=== PATIENT | female | born 1970 | race Caucasian/White ===

== ENCOUNTER → 2018-01-10 | Outpatient (CLI) | payer SELFPAY | LOC: M LAB 09:18 | DX: N92.0 Excessive and frequent menstruation with regular cycle (principal) ==

== ENCOUNTER 2018-05-02 08:16 | Day surgery (SDC) | payer OTHER ==
[~2018-05-02 08:16] MED LIST: LIDOCAINE 2% INJ 100 MG/5 ML SDV (FOR ANES.) As Ordered; PROPOFOL 200 MG/20 ML VIAL As Ordered
[2018-05-02] MEDS ORDERED: NS 1,000 ML IV (10:00)
== END 2018-05-02 12:00 | disposition home or self-care (01) ==
LOC: M OPP 08:16
DX: Z12.11 Encounter for screening for malignant neoplasm of colon (principal); Z83.71 Family history of colonic polyps; D12.3 Benign neoplasm of transverse colon; D12.5 Benign neoplasm of sigmoid colon; K64.8 Other hemorrhoids; K64.4 Residual hemorrhoidal skin tags; I10 Essential (primary) hypertension; E78.5 Hyperlipidemia, unspecified; R00.8 Other abnormalities of heart beat; E11.9 Type 2 diabetes mellitus without complications; K21.9 Gastro-esophageal reflux disease without esophagitis; R12 Heartburn; R51 Headache; R06.83 Snoring; Z88.2 Allergy status to sulfonamides; Z79.899 Other long term (current) drug therapy; Z79.84 Long term (current) use of oral hypoglycemic drugs
CPT/HCPCS: 45385

== ENCOUNTER → 2018-10-01 | Outpatient (REF) | payer SELFPAY ==
[~2018-10-01] MED LIST changes: +ATEN25TA PO; +ATEN50TA2 PO; +CINN500T PO; +COCOOIL6 PO; +FERRPOW27 PO; +FISH7.5C PO; -LIDOCAINE 2% INJ 100 MG/5 ML SDV (FOR ANES.) As Ordered; +METF500T4 PO; +PROG100C PO; -PROPOFOL 200 MG/20 ML VIAL As Ordered; +STOO100C PO; +VITA500046 PO; +VITA500T PO
[2018-10-01 17:15] LABS: INFLUENZA A AMPLIFICATION NEGATIVE (NEGATIVE); INFLUENZA B AMPLIFICATION NEGATIVE (NEGATIVE)
== END ==
LOC: M LAB REF 10:58
PROVIDERS: ATTEND Physician Assistant
DX: J11.1 Influenza due to unidentified influenza virus with other respiratory manifestations (principal)

== ENCOUNTER → 2019-06-01 | Outpatient (CLI) | payer SELFPAY ==
[~2019-06-01] MED LIST changes: +METF-791 PO; -METF500T4 PO; +MM S100C PO; -PROG100C PO; +PROG1CAP8 PO; -STOO100C PO
--- NOTE | 2019-06-04 05:33 | REP ---
THYROID ULTRASOUND: Real-time sonographic evaluation of thyroid performed. Right lobe is markedly enlarged, 10.8 x 4.8 x 3.4 cm. Left lobe is mildly enlarged, 5.4 x 1.3 x 0.9 cm. There is an exophytic nodular area of the right upper pole. The more lateral is solid containing microcalcifications; the solid area measures 3.4 x 1.7 x 2.6 cm. There is a complex cystic area along the medial aspect measuring 1.9 x 1.2 x 1.7 cm. These two nodular areas are lateral to the carotid artery and jugular vein. In the adjacent more inferior upper pole of the right lobe, there is a mildly complex cyst with wall thickening measuring 1.4 x 1.4 x 1.6 cm. In the right mid lobe, there is a solid nodule with multiple microcalcifications measuring 2.1 x 1.8 x 2.1 cm, the microcalcifications peripherally located. In the right lower pole, there is a complex cystic and solid nodule, which appears to contain multiple microcalcifications 4.0 x 3.6 x 3.5 cm. On the left, there are two adjacent solid nodules containing multiple microcalcifications, the larger 1.3 x 1.2 x 1.4 cm and just superior to that 8 x 7 x 10 mm. There is a 5 mm nodule in the left isthmus. IMPRESSION: Marked enlargement of the right lobe of the thyroid with slight enlargement of the left lobe. Suspicious thyroid nodules are seen bilaterally. An exophytic solid nodule containing microcalcifications is seen in the upper pole on the right with an approximate maximum diameter of 3.4 cm. A solid nodule containing peripheral microcalcifications in the mid right lobe measures 2.1 cm maximally. A suspicious complex solid and cystic nodule in the right lower pole has a maximum diameter of 4 cm. Two adjacent suspicious nodules in the left lower pole, the larger measuring 1.4 cm maximally. Ultrasound-guided biopsy is recommended. Electronically Signed by Jonathan Campbell MD 06/04/2019 04:07 P
== END ==
LOC: M RAD 14:43
PROVIDERS: ATTEND Physician Assistant
DX: R00.2 Palpitations (principal); E04.2 Nontoxic multinodular goiter

== ENCOUNTER → 2019-09-03 | Outpatient (REF) | payer SELFPAY | LOC: M LAB REF 10:35 | PROVIDERS: ATTEND Internal Medicine Endocrinology, Diabetes & Metabolism | DX: E04.2 Nontoxic multinodular goiter (principal) ==

== ENCOUNTER → 2019-10-05 | Outpatient (CLI) | payer BC, OTHER ==
[2019-10-05 09:37] LABS: BLOOD UREA NITROGEN 14 MG/DL (7-18); CALCIUM LEVEL 8.9 MG/DL (8.5-10.1); CARBON DIOXIDE LEVEL 24 MEQ/L (21-32); CHLORIDE LEVEL 108 MEQ/L (98-107); CREATININE FOR GFR 0.57 MG/DL (0.55-1.30); GLOMERULAR FILTRATION RATE > 60.0 (>51); GLUCOSE, FASTING 147 MG/DL (70-100); POTASSIUM SERUM 4.1 MEQ/L (3.5-5.1); SODIUM LEVEL 141 MEQ/L (136-145)
== END ==
LOC: M LAB 08:11
PROVIDERS: ATTEND Surgery
DX: Z01.818 Encounter for other preprocedural examination (principal)

== ENCOUNTER → 2020-08-07 | Outpatient (CLI) | payer BC, OTHER ==
[~2020-08-07] MED LIST changes: -METF-791 PO; +METF-838 PO; +VITA-243 PO; -VITA500T PO
--- NOTE | 2020-08-09 07:10 | REP ---
INDICATION: LOCALIZED ENLARGED LYMPH NODES COMPARISON: 06/01/2019 TECHNIQUE: Campbell scale and color evaluation of the thyroid gland using the linear high frequency transducer. FINDINGS: Evidence for prior thyroidectomy. Ultrasound examination demonstrates no residual or regenerative thyroid tissue. Bilateral normal appearing lymph nodes are identified measuring 17 x 9 x 17 mm on the right and 13 x 9 x 7, 13 x 5 x 5, 16 x 5 x 8 mm on the left. IMPRESSION: Evidence for prior thyroidectomy. Normal appearing bilateral lymph nodes (left greater than right). <Electronically signed by Blas Silva > 08/09/20 0707
== END ==
LOC: M RAD 15:53
PROVIDERS: ATTEND Nurse Practitioner Adult Health
DX: K59.00 Constipation, unspecified (principal); R59.0 Localized enlarged lymph nodes

== ENCOUNTER → 2020-12-22 | Outpatient (CLI) | payer BC ==
--- NOTE | 2020-12-22 13:50 | REPMRS ---
Patient History The patient states she has not had a clinical breast exam in over a year. Patient has history of other cancer at age 49. Family history of colorectal cancer at age 65 in paternal grandmother. Took hormonal contraceptives for 10 years. 3D TOMOSYNTHESIS WAS PERFORMED. [facility]%. Volpara breast density b. Digital Woman Screen Mammo: December 22, 2020 - Exam #: [id number] Bilateral CC and MLO view(s) were taken. Technologist: RT Jaison Prior study comparison: January 18, 2020, bilateral digital mammo screening bilat, performed at [facility]. July 22, 2015, bilateral digital mammo screening bilat, performed at [facility]. FINDINGS: There are scattered fibroglandular densities. There has been no change in the appearance of the mammogram from the prior studies. There is a mild amount of residual fibroglandular tissue which is fairly symmetric. There is no interval development of dominant mass, architectural distortion, or clustered microcalcification suggestive of malignancy. Assessment: BI-RADS/ACR category 1 mammogram. Negative Mammogram. Recommendation Routine screening mammogram in 1 year (for women over age 40). This mammogram was interpreted with the aid of an FDA-approved computer-aided dectection system. Electronically Signed By: Jonathan Campbell MD 12/22/20 [id number]
--- NOTE | 2020-12-22 16:52 | DEXAMM ---
INDICATION: Z13.820 SCREENING FOR OSTEOPOROSIS. COMPARISON: None. TECHNIQUE: Bone density was measured using dual-energy x-ray absorptiometry (DEXA). FINDINGS: AP SPINE L1-L4 BMD 1.729 g/cm2 Young Adult T-Score 4.3 Age Matched Z-Score 4.9. LT FEMUR, TOTAL BMD 1.288 g/cm2 Young Adult T-Score 2.2 Age Matched Z-Score 2.8. LT NECK BMD 1.213 g/cm2 Young Adult T-Score 1.3 Age Matched Z-Score 2.1. RT FEMUR, TOTAL BMD 1.247 g/cm2 Young Adult T-Score 1.9 Age Matched Z-Score 2.4. RT NECK BMD 1.174 g/cm2 Young Adult T-Score 1.0 Age Matched Z-Score 1.9. IMPRESSION: There is normal bone dense of the spine. There is normal bone density of the left hip. There is normal bone density of the right hip. FOLLOW-UP: Recommendation for the next bone density exam: 5 years. <Electronically signed by Jonathan Campbell > 12/22/20 [id number]
== END ==
LOC: M WHC 07:56
PROVIDERS: ATTEND Nurse Practitioner Adult Health
DX: Z12.31 Encounter for screening mammogram for malignant neoplasm of breast (principal); Z13.820 Encounter for screening for osteoporosis; Z85.9 Personal history of malignant neoplasm, unspecified

== ENCOUNTER → 2021-04-06 | Outpatient (CLI) | payer BC, OTHER ==
--- NOTE | 2021-04-06 16:37 | REP ---
INDICATION: MALIGNANT NEOPLASM OF THYROID. COMPARISON: 08/07/2020. TECHNIQUE: Real-time sonographic evaluation of neck soft tissues performed status post thyroidectomy November 2019. FINDINGS: In the right neck soft tissues there is an oval hypoechoic nodule which has increased in size when compared to the prior study, measuring 2.4 x 1.5 x 1.0 cm. This may represent an enlarging lymph node. Otherwise no significant cystic or solid mass is seen in the bilateral soft tissues of the neck. IMPRESSION: Oval hypoechoic nodule in the right neck soft tissues, possibly a lymph node, has increased in size compared to the prior study, measuring 2.4 x 1.5 x 1.0 cm. <Electronically signed by Jonathan Campbell > 04/06/21 2912
== END ==
LOC: M RAD 14:45
PROVIDERS: ATTEND Internal Medicine Endocrinology, Diabetes & Metabolism
DX: C73 Malignant neoplasm of thyroid gland (principal)

== ENCOUNTER → 2021-05-14 | Outpatient (CLI) | payer BC, OTHER ==
[~2021-05-14] MED LIST changes: +LIDOCAINE 1% MDV 20ML VIAL As Ordered ONE; +SODIUM BICARBONATE 8.4% INJ 50MEQ 50 ML VIAL As Ordered ONE
[2021-05-14 09:30] VITALS: BP 172/89
--- NOTE | 2021-05-14 10:45 | REP ---
INDICATION: RT SIDE NECK NODULE W/ SIZE INCREASE3. COMPARISON: Ultrasound dated 04/06/2021 TECHNIQUE: The procedure was performed by Elyse Maradiaga [facility], under the direct supervision of Dr. Carmichael. The risks and benefits of the procedure were explained to the patient and an informed consent was obtained both verbally and written. Directly prior to the start of the procedure a formal time-out was completed in the procedure room. FINDINGS: Using ultrasound guidance the right submandibular lymph node was localized. Due to the location of the lymph node it was determined that a fine needle aspiration would be the safest approach. The skin was prepped and draped in a sterile fashion. Two mL of buffered lidocaine was used as a local anesthetic. Using ultrasound guidance a 8 fine needle aspirations were obtained using 25 gauge needles. Four specimens were sent to our lab here, and remaining 4 were sent out in RPMI solution, for further testing. The patient tolerated the procedure well and there were no immediate complications. After the appropriate amount of monitored convalescence the patient was discharged from the department. IMPRESSION: 1. Ultrasound-guided right submandibular lymph node biopsy. <Electronically signed by Elyse Maradiaga > 05/14/21 1032 <Electronically signed by Andrew Carmichael > 05/14/21 1041
== END ==
LOC: M IRPRO 08:28
PROVIDERS: ATTEND Nurse Practitioner Family
DX: R59.0 Localized enlarged lymph nodes (principal)

== ENCOUNTER → 2021-08-24 | Outpatient (CLI) | payer BC, OTHER ==
[~2021-08-24] MED LIST changes: +CINN500C12 PO; +D31000TA2 PO; +EZET10TA21; +HYDR-3490; +IRON27TA2 PO; +JARD1TAB; +LEVO175T2; -LIDOCAINE 1% MDV 20ML VIAL As Ordered ONE; +LOSA100T50; +OMEP40CA4 PO; -SODIUM BICARBONATE 8.4% INJ 50MEQ 50 ML VIAL As Ordered ONE; +TRAD5TAB
== END ==
LOC: M LABSMTC 09:19
PROVIDERS: ATTEND Anesthesiology
DX: Z01.812 Encounter for preprocedural laboratory examination (principal); Z20.822 Contact with and (suspected) exposure to COVID-19

== ENCOUNTER 2021-08-28 08:19 | Day surgery (SDC) | payer BC, OTHER ==
[~2021-08-28] VITALS: Ht 162.6 cm; Wt 81.2 kg
--- OUTSIDE RECORDS SUMMARY | 2021-08-28 08:23 | CCD | Continuity of Care Document ---
Author Author Ramya SANTAMARIA LACQUER PIN PRESS OPERATOR Organization Unknown Address [address] [place] [address] Phone [phone] Care Team Providers Care Petroleum Plant Operator Name Role Phone Rosa Brannon AUTM [phone] Domonique Aragon LACQUER PIN PRESS OPERATOR AUTM [phone] Problems Active Problems Provider Date Essential hypertension Onset: 07/18/2019 Pure hypercholesterolemia Onset: 019 Social History Type Date Description Comments Sex Unknown ETOH Use Occasionally consumes alcohol Tobacco Use Start: Unknown Patient has never smoked Smoking Status Reviewed: 06/08/21 Patient has never smoked Allergies, Adverse Reactions, Alerts Active Allergies Criticality Reaction | Severity Comments Date sulfa drugs Unable to assess criticality Hives, Tongue swelling 07/18/2019 Medications Active Medications SIG Qnty Indications Ordering Provide r Date Thyrogen 1.1mg Solution Rec 2 vials/ kits 0.9 mg intramuscular every 24hrs.x's 2 doses 1kit C73 Cla shiela Kelly MD 02/13/2021 Alprazolam 1mg Tablets 1 by mouth 45 minutes before procedure- 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 - ue April 2021 90tabs C73 Patricia Kelly MD 12/18/2019 E89.0 Jardiance 10mg Tablets 1 by mouth every day Unknown Ezetimibe 10mg Tablets take one tablet by mouth every day maximum daily dose = 1 Unknown Omeprazole 10mg Capsules DR 1 po qd Unknown Tradjenta 5mg Tablets 1 by mouth every day Unknown Hydrochlorothiazide 25mg Tablets 1 po qd Unknown Losartan Potassium 100mg Tablets 1 po qd Unknown Atenolol 50mg Tablets 1 po qd Unknown Iron (Ferrous Gluconate) 256(28Fe) mg Tablets 1 po qd Unknown Cinnamon 500mg Capsules 2 by mouth every day Unknown Vitamin D3 125mcg (5000 Ut) Tablet s 1 po qd Unknown Vitamin C 1000mg Tablets 1 by mouth bid Unknown Coconut Oil 1000mg Capsules 1 po bid Unknown Metformin HCL ER 500mg Tablets ER 24HR 2 tablets by mouth twice daily Unknown Fish Oil 1000mg Capsules 1 po bid Unknown Immunizations Description No Information Available Vital Signs Date Vital Result Comment 06/08/2021 3:59pm BP Systolic 114 mmHg BP Diastolic 70 mmHg Heart Rate 66 /min Height 65 inches 5'5" Weight 184.50 lb BMI (Body Mass Index) 30.7 kg/m2 O2 % BldC Oximetry 98 % 04/13/2021 8:31am BP Systolic 122 mmHg BP Diastolic 70 mmHg Heart Rate 53 /min Height 65 inches 5'5" Weight 193.12 lb BMI (Body Mass Index) 32.1 kg/m2 O2 % BldC Oximetry 98 % Results Test Acquired Date Facility Test Result H/L Range Note Laboratory test finding 05/14/2021 [facility] [address] [place] [address] [phone] Non Weapons And Tactics Instructor/Cytology Req For Servi (SEE NOTE) 1 1 SPECIMEN: [facility] rig [facility] ADEQUACY: Satisfactory for evaluation CATEGORIZATION: Atypical cytology DESCRIPTIONS: Specimen consists mainly of reactive appearing lymphocytes and rare group of glandular looking epitheloid cells. No definitive evidence for non-Hodgkin lymphoma. See comment COMMENTS: Dilute sample for flow cytometry, with no evidence of lymphoma, repeat study may help if lymphoma is suspected. If suspicion of metastatic carcinoma exists, repeat aspiration or biopsy can provide additional material for evaluation. See RELL report [id number] scanned in EMR pathology. 05/19/2021 - [address] (ASCP) 05/15/2021 0834 (Prelim) Signed Brandee Amato MD 05/19/2021 0730 Procedures Date Code Description Status 06/08/2021 16261 Office/Outpatient Established Mo d MDM 30-39 Min Completed 04/13/2021 11261 Office/Outpatient Established Mo d MDM 30-39 Min Completed 03/19/2021 08884 Office/Outpatient Established Mo d MDM 30-39 Min Completed 03/03/2021 17374 Injec Therapeutic Or Diagnostic Subcut Or Intramuscular Completed 03/02/2021 47846 Office/Outpatient Established Mo d MDM 30-39 Min Completed 03/02/2021 97427 Injec Therapeutic Or Diagnostic Subcut Or Intramuscular Completed Medical Devices Description No Information Available Encounters Type Date Location Provider Dx Diagnosis Office Visit 06/08/2021 4:00p DR. Patricia Santamaria, N P C73 Malignant neoplasm of thyroid gland E89.0 Postprocedural hypothyroidis m Office Visit 04/13/2021 8:30a DR. Patricia Kelly MD C 73 Malignant neoplasm of thyroid gland E89.0 Postprocedural hypothyroidis m Office Visit 03/19/2021 12:45p DR. Patricia Kelly MD C 73 Malignant neoplasm of thyroid gland E89.0 Postprocedural hypothyroidis m Office Visit 03/03/2021 10:00a DR. Patricia Santamaria, N P C73 Malignant neoplasm of thyroid gland E89.0 Postprocedural hypothyroidis m Office Visit 03/02/2021 10:00a DR. Patricia Santamaria, N P C73 Malignant neoplasm of thyroid gland E89.0 Postprocedural hypothyroidis m Assessments Date Code Description Provider 06/08/2021 C73 Malignant neoplasm of thyroid gl and Mili Santamaria NP 06/08/2021 E89.0 Postprocedural hypothyroidism Joycelyn aSntamaria NP 04/13/2021 C73 Malignant neoplasm of thyroid gl and Patricia Kelly MD 04/13/2021 E89.0 Postprocedural hypothyroidism Nate Kelly MD 03/19/2021 C73 Malignant neoplasm of thyroid gl and Patricia Kelly MD 03/19/2021 E89.0 Postprocedural hypothyroidism Nate Kelly MD 03/03/2021 C73 Malignant neoplasm of thyroid gl and Mili Santamaria NP 03/03/2021 E89.0 Postprocedural hypothyroidism Joycelyn Santamaria NP 03/02/2021 C73 Malignant neoplasm of thyroid gl and Mili Santamaria NP 03/02/2021 E89.0 Postprocedural hypothyroidism Joycelyn Santamaria NP Plan of Treatment Future Appointment(s):* 12/02/2021 8:30 am - Mili Santamaria NP at DR. Patricia Kelly 06/08/2021 - Mili Santamaria NP* C73 Malignant neoplasm of thyroid gland* New Labs:* Thyroglobulin AB Screen Tumor, Scheduled: 11/17/21 * Thyroglobulin QN Tumor Marker, Scheduled: 11/17/21 * New Xrays:* Ultrasound Of Neck, Scheduled: 11/23/21 * Comments:* 11/2019:patient presents with a new diagnosis of papillary thyroid cancer. T2N1M0 Extensive metastatic disease. Tumor size was less than 4 cm. Negative margins, negative for lymphovascular invasion. Intermediate risk However in light of extensive lymph node disease would recommend radioactive iodine. 01/30/2020;s/p 149 millicurie I- 131, : DURAN ablation after thyrogen injections.Stimulated January 2020 = Tg QT=1.3, 12/13/2019 TSH= 1, FT4= 1.6, Tg QT =0.8, tg ab negativeThyrogen Stim TBS: 03/03/2021: Subtle focus of increased uptake in the thyroid bed which is probably an artifact. Residual tissue cannot be excluded.02/2021: Tgb AB <1.0,Tg QT = 2.3. Close short-term lab follow-up recommended as well as neck ultrasound.Now stimulated thyroglobulin level = 2.3. Slight increase. Repeat neck ultrasound performed- enlargement of a lymph node. 05/14/21 - FNA of Right neck mass- atypical cytology- specimen consists mainly of reactive appearing lymphocytes. No evidence of non-Hodgkin lymphoma. Discussed case with Dr. Kelly- will repeat ultrasound and TG suppressed in 6 months. Pt agrees to plan * Follow up:* RTO 6 months. JL * E89.0 Postprocedural hypothyroidism* Comments:* Post operative hypothyroidism. Goal will be to suppress her TSH. Labs June 2020- TSH <0.005, free T4 = 25, TGqt = 0.2.. Patient had resection and received high-dose radioactive iodine.Excellent response TG <1.0, incomplete response stimulated level > 10Indeterminate responses stimulated TG level 1-10, with faint uptake in the thyroid bed.Her suppressed thyroglobulin level did measure <0.2 in the fall 2019 which would be an excellent response. She is indeterminate right now based on stimulated levels. 03/19/2021,TSH = 0.016, free T4 = 2.54, lab Sun, TSH is suppressed as it should be right now. Functional Status Description No Information Available Mental Status Description No Information Available Referrals Refer to Reason for Referral Status Appt Date Mili Santamaria [place] FNA [id number] PER WEB NO AUTH REQUIRED. JEANA Created [address] [place] [address] [phone] Mili Santamaria NP NECK U/S NO AUTH REQUIRED BA SED ON MEDICAL NECESSITY. JEANA Created [address] [place] [address] [phone] [place] [id number] WBS PER RJ [facility]. JEANA Created [address] [place] [address], [address] [address] [phone] Patricia Kelly MD THYROGEN AND WHOLE BODY SCAN WITH DURAN [id number] NO AUTH REQUIRED. . PER JOSE @ [facility]. REF # [id number]. Created [facility], [address] [address] [phone]
--- OUTSIDE RECORDS SUMMARY | 2021-08-28 08:23 | CCD | Continuity of Care Document ---
Author Author Ramya ARAGON MEETING COORDINATOR Organization Unknown Address [address] [place] [address] Phone [phone] Care Team Providers Care Chief Controller Tower Name Role Phone Domonique Aragon AUTM [phone] Problems Active Problems Provider Date Hypothyroidism LAUREL Felder, PNP Onset: 0 Type II diabetes mellitus uncontrolled LAUREL Felder P HYDRATOR Onset: 07/31/2020 Essential hypertension LAUREL Felder, PNP Onset: 2019 Mixed hyperlipidemia LAUREL Felder, PNP Onset: 07/31/20 20 Palpitations LAUREL Felder, PNP Onset: 0 Malignant tumor of thyroid gland LAUREL Felder PNP Ons et: 07/31/2020 Anemia LAUREL Felder, PNP Onset: 0 Heart murmur LAUREL Felder, PNP Onset: 0 Taking medication LAUREL Felder PNP Onset: 0 Non-toxic multinodular goiter LAUREL Felder, PNP Onset: 07/31/2020 Excessive and frequent menstruation LAUREL Felder, PNP Onset: 07/31/2020 Benign paroxysmal positional vertigo LAUREL Felder, PNP Onset: 07/31/2020 Neoplasm of breast LAUREL Felder, PNP Onset: 0 Social History Type Date Description Comments Sex Unknown Tobacco Use Start: Unknown Never Smoked Cigarettes Tobacco Use Start: Unknown Never Smoked Cigars Tobacco Use Start: Unknown Never Smoked A Pipe Tobacco Use Start: Unknown Never Used Smokeless Tobacco ETOH Use Occasionally consumes alcohol Tobacco Use Start: Unknown Patient has never smoked Recreational Drug Use Denies Drug Use Allergies, Adverse Reactions, Alerts Active Allergies Criticality Reaction | Severity Comments Date Sulfa Antibiotics Unable to assess criticality Anaphylaxis | Severe 06/23/2018 Medications Active Medications SIG Qnty Indications Ordering Provide r Date Jardiance 10mg Tablets take 1 tab by mouth daily 90tabs Jah Rodriguez MD 05/04/2021 Farxiga 5mg Tablets 1 tab by mouth every morning 90tabs Jah Rodriguez MD 04/03/2021 Onetouch Verio Strips test blood sugar twice a day as needed 100units Jah Rodriguez MD 2020 Ezetimibe 10mg Tablets 1 by mouth every day 90tabs [facility] 09/18/2020 Tradjenta 5mg Tablets take one tablet by mouth every day in the morning 90tabs Jah Rodriguez MD 04/29/2020 [facility] Blood Glucose Meter W/Device K it please provide glucometer that will be covered by insurance for twice a day blood sugar test dx: e11.65 1units LAUREL Felder, PNP 10/18/2019 Blood Glucose Test Strips Premium Strips glucose test strips compatible w/ meter, covered by insurance for 2 x day bs test dx: e11.65 100units LAUREL Felder, PNP 10/18/[address] ease provide lancets that will be covered by insurance for twice a day blood sugar test dx: e11.65 100units LAUREL Felder, PNP 10/18/2019 Atenolol 50mg Tablets take one tablet by mouth every day 90tabs Jah Rodriguez MD 07/17/2019 Meclizine HCL 25mg Tablets take one tablet by mouth every 8 hours for dizziness as needed 90tabs D LAUREL Carter, PNP 11/10/2018 Metformin HCL ER 500mg Tablets ER 24HR Take Two Tablets By Mouth Twice A Day 360tabs LAUREL Felder, PNP 06/23/2018 Fish Oil 1000mg Capsules 1 tab by mouth twice a day otc 90caps Unknown Coconut Oil 1 by mouth twice a day Unknown 0 Cinnamon 1000mg Tablets 1 by mouth twice a day Unknown Vitamin C 1000mg Tablets ER 1 by mouth twice a day Unknown Iron 100 Plus 100-250-0.025-1mg Ta blets 1 by mouth every day Unknown Losartan Potassium 100mg Tablets 1 by mouth every day 90tabs Jah Rodriguez MD Hydrochlorothiazide 25mg Tablets 1 by mouth every day 90tabs Jah Rodriguez MD Levothyroxine Sodium 175mcg Tablet s Take One Tablet By Mouth Every Day (Dr Kelly) Unknown Omeprazole 20mg Capsules DR 1 by mouth at bedtime 90caps Unknown Immunizations Description No Information Available Vital Signs Date Vital Result Comment 04/03/2021 9:39am BP Systolic 148 mmHg BP Diastolic 86 mmHg Heart Rate 78 /min Respiratory Rate 16 /min O2 % BldC Oximetry 99 % Weight 197.12 lb Weight 89.416 kg Height 65 inches 5'5" BMI (Body Mass Index) 32.8 kg/m2 BSA (Body Surface Area) 1.97 m2 11/18/2020 10:38am BP Systolic 126 mmHg BP Diastolic 80 mmHg Heart Rate 62 /min Body Temperature 97.2 F Respiratory Rate 18 /min O2 % BldC Oximetry 98 % Weight 198.38 lb Weight 89.983 kg Height 65 inches 5'5" BMI (Body Mass Index) 33.0 kg/m2 BSA (Body Surface Area) 1.97 m2 Results Description No Information Available Procedures Date Code Description Status 04/03/2021 85371 Office/Outpatient Established Mo d MDM 30-39 Min Completed 12/22/2020 [id number] Mammogram Completed Medical Devices Description No Information Available Encounters Description No Information Available Assessments Date Code Description Provider 04/03/2021 E03.9 Hypothyroidism, unspecified Linda Aragon, [facility] 04/03/2021 E11.65 Type 2 diabetes mellitus with hy perglycemia Domonique Aragon, [facility] 04/03/2021 E78.2 Mixed hyperlipidemia Domnoique Rivero ls, [facility] 04/03/2021 I10 Essential (primary) hypertension Domonique Aragon, [facility] 04/03/2021 C73 Malignant neoplasm of thyroid gl and Domonique Aragon, [facility] 04/03/2021 Z79.899 Other penitentiary (current) drug t herapy RICCARDO Khan Plan of Treatment Future Appointment(s):* 07/06/2021 3:00 pm - RICCARDO Khan at [facility] 04/03/2021 - RICCARDO Khan* E03.9 Hypothyroidism, unspecified* Comments:* She is s/p thyroidectomy for papillary thyroid cancer. She has postprocedural hypothyroidism. Her TSH is low at 0.016. The patient was advised to continue current medication regimen. She is scheduled to see Dr. Kelly in about a week from now who manages her thyroid.We will need to monitor her TSH periodically. * Follow up:* FU in 3 months, fasting labs a week prior. * E11.65 Type 2 diabetes mellitus with hyperglycemia* Comments:* Her fasting glucose is high at 174 with an A1c at 7.6.The patient was advised to continue with her current medication regimen with addition of Farxiga 5 mg 1 tab PO QAM. She will benefit from maintaining a diabetic diet and a regular exercise regimen. Discussed decrease in sugar intake;No sugared drinksDo not keep sugar out where it can be readily usedNo concentrated sweets or baked goodsChoose f ruits or vegetable snacksIncrease water intake.We will continue to monitor. * Follow up:* FU in 3 months, fasting labs a week prior. * E78.2 Mixed hyperlipidemia* Comments:* Labs reviewed with the patient in detail.Lipid panel showed:CHOL at 195.TRG high at 173.HDL at 57.LDL high at 108.She will continue with her current regimen. She was encouraged to maintain a low cholesterol diet and a regular exercise regimen. We will continue to monitor. TRG elevatedDecrease saturated Fats (meat, dairy products and processed foods)Increase Unsaturated fats (fish, plants, nuts, seeds, beans and vegetable oils)Read Labels. * Follow up:* FU in 3 months, fasting labs a week prior. * I10 Essential (primary) hypertension* Comments:* Today, her BP is at 148/86.She was advised to continue with her current line of therapies. She will benefit from maintaining a low-sodium diet. We will continue to monitor. * C73 Malignant neoplasm of thyroid gland* Comments:* She is s/p thyroidectomy for papillary thyroid cancer. * Z79.899 Other terminal carman (current) drug therapy* Comments:* Patient to continue to follow the current plan of care and to look for any new or worsening symptoms. We will continue to monitor through periodic blood work. * Follow up:* FU in 3 months, fasting labs a week prior. Functional Status Description No Information Available Mental Status Description No Information Available Referrals Description No Information Available
--- OUTSIDE RECORDS SUMMARY | 2021-08-28 08:23 | CCD | Continuity of Care Document ---
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 See RELL report [id number] scanned in EMR pathology. 05/19/2021 - [address] (ASCP) 05/15/2021 0834 (Prelim) Signed Brandee Amato MD 05/19/2021 0730 Procedures Date Code Description Status 06/08/2021 70876 Office/Outpatient Established Mo d MDM 30-39 Min Completed 04/13/2021 14408 Office/Outpatient Established Mo d MDM 30-39 Min Completed 03/19/2021 32053 Office/Outpatient Established Mo d MDM 30-39 Min Completed 03/03/2021 36854 Injec Therapeutic Or Diagnostic Subcut Or Intramuscular Completed 03/02/2021 37488 Office/Outpatient Established Mo d MDM 30-39 Min Completed 03/02/2021 20765 Injec Therapeutic Or Diagnostic Subcut Or Intramuscular [...] Santamaria NP 06/08/2021 E89.0 Postprocedural hypothyroidism Joycelyn Santamaria NP 04/13/2021 C73 Malignant neoplasm of thyroid [...] Status Appt Date Mili Santamaria [place] FNA 95590 PER WEB NO AUTH REQUIRED. JEANA Created [address] [place] [address] [phone] Mili Santamaria NP NECK U/S NO AUTH REQUIRED BA SED ON MEDICAL NECESSITY. JEANA Created [address] [place] [address] [phone] [place] [address] WBS PER [facility]. JEANA Created [address] [place] [address], [address] [address] [phone] Patricia Kelly MD THYROGEN AND WHOLE BODY SCAN WITH DURAN [id number] NO AUTH REQUIRED. . PER [facility]. REF # [id number]. Created [facility], [address] [address] [phone]
--- OUTSIDE RECORDS SUMMARY | 2021-08-28 08:23 | CCD | Continuity of Care Document ---
Author Author Ramya ARAGON PIPELINES LABORER Organization Unknown Address [address] [place] [address] Phone [phone] Care Team Providers Care Data Analytics Developer Name Role Phone Domonique Aragon AUTM [phone] Problems Active Problems Provider Date Hypothyroidism LAUREL Felder, PNP Onset: 0 Type II diabetes mellitus uncontrolled LAUREL Felder P FRY COOK Onset: 07/31/2020 Essential hypertension LAUREL Felder, PNP [...] smoked Recreational Drug Use Denies Drug Use Allergies and adverse reactions Active Allergies Criticality Reaction | Severity Comments Date Sulfa Antibiotics Unable to assess criticality Anaphylaxis | Severe 06/23/2018 Medications Active Medications SIG Qnty Indications Ordering Provide r Date Fluconazole 150mg Tablets Take 1 tab by mouth as a single dose. May repeat in 2 days if symptoms not resolved. 2tabs Jah Rodriguez MD 08/25/2021 Jardiance 10mg Tablets take 1 tab by mouth daily 90tabs Jah Rodriguez MD 05/04/2021 Onetouch Verio Strips test blood sugar twice a day as needed 100units Jah Rodriguez MD 2020 Ezetimibe 10mg Tablets 1 by mouth every day 90tabs Karina Damon 09/18/2020 Tradjenta 5mg Tablets take one tablet [...] Metformin HCL ER 500mg Tablets ER 24HR take two tablets by mouth twice a day 360tabs Jah Rodriguez MD 06/23/2018 Fish Oil 1000mg Capsules 1 tab by mouth twice a day otc 90caps Unknown Omeprazole 20mg Capsules DR 1 by mouth at bedtime 90caps Unknown Levothyroxine Sodium 175mcg Tablet s Take One Tablet By Mouth Every Day (Dr Kelly) Unknown Hydrochlorothiazide 25mg Tablets 1 by mouth every day 90tabs Jah Rodriguez MD Losartan Potassium 100mg Tablets 1 by mouth every day 90tabs Jah Rodriguez MD Iron 100 Plus 100-250-0.025-1mg Ta blets 1 by mouth every day Unknown Vitamin C 1000mg Tablets ER 1 by mouth twice a day Unknown Cinnamon 1000mg Tablets 1 by mouth twice a day Unknown Coconut Oil 1 by mouth twice a day Unknown 0 History Medications Fluconazole 100mg Tablets Take 1 tab by mouth as a single dose. May repeat in 2 days if symptoms not resolved. Jah Rodriguez MD 08/25/2021 - 08/25/2021 Diflucan 150mg Tablets take 1 tab by mouth as a single one time dose 1tabs Jah Rodriguez MD - 07/06/2021 Farxiga 5mg Tablets 1 tab by mouth every morning 90tabs Jah Rodriguez MD 04/03/2021 - 07/06/2021 Immunizations Description No Information Available Vital Signs Date Vital Result Comment 07/06/2021 3:01pm BP Systolic 148 mmHg BP Diastolic 82 mmHg Heart Rate 57 /min Body Temperature 97.3 F Respiratory Rate 16 /min O2 % BldC Oximetry 98 % Weight 182.50 lb Weight 82.782 kg Height 65 inches 5'5" BMI (Body Mass Index) 30.4 kg/m2 BSA (Body Surface Area) 1.90 m2 04/03/2021 9:39am BP Systolic 148 mmHg BP Diastolic 86 mmHg Heart Rate 78 /min Respiratory Rate 16 /min O2 % BldC Oximetry 99 % Weight 197.12 lb Weight 89.416 kg Height 65 inches 5'5" BMI (Body Mass Index) 32.8 kg/m2 BSA (Body Surface Area) 1.97 m2 Results Test Acquired Date Facility Test Result H/L Range Note Coronavirus 2019 Nasopharygeal 08/24/2021 [facility] Coronavirus 2019 Nasopharygeal ASSAY INFORMATIO <SEE NOTE> 1 1 ASSAY INFORMATION: Real Time RT-PCR NOTE: The COVID-19 assay has been cleared by the U.S. Food and Drug Administration under the Emergency Use Authorization (EUA). [facility] and [facility] are designated as high complexity laboratories by the Clinical Laboratory Improvement Amendments of 1988(CLIA) and are qualified to perform this test. Not Detected Procedures Date Code Description Status 07/06/2021 60364 Office/Outpatient Established Mo d MDM 30-39 Min Completed 04/03/2021 00918 Office/Outpatient Established Mo d MDM 30-39 Min Completed 12/22/2020 [id number] Mammogram Completed Medical Devices Description No Information Available Encounters Description No Information Available Assessments Date Code Description Provider 07/06/2021 I10 Essential (primary) hypertension Domonique Nevills, [facility] 07/06/2021 E03.9 Hypothyroidism, unspecified Linda n Nevills, [facility] 07/06/2021 E11.65 Type 2 diabetes mellitus with hy perglycemia Domonique Nevills, [facility] 07/06/2021 E78.2 Mixed hyperlipidemia Domonique Nevil ls, [facility] 07/06/2021 C73 Malignant neoplasm of thyroid gl and Domonique Nevills, [facility] 07/06/2021 Z79.899 Other terminal worker (current) drug t herapy Domonique Nevills, [facility] 07/06/2021 D64.9 Anemia, unspecified Domonique Nevill s, [facility] 07/06/2021 E04.2 Nontoxic multinodular goiter Yovani en Nevills, [facility] 04/03/2021 E03.9 Hypothyroidism, unspecified Linda n Nevills, [facility] 04/03/2021 E11.65 Type 2 diabetes mellitus with hy perglycemia Domonique Nevills, [facility] 04/03/2021 E78.2 Mixed hyperlipidemia Domonique Nevil ls, [employer] 04/03/2021 I10 Essential (primary) hypertension Domonique Nevills, [facility] 04/03/2021 C73 Malignant neoplasm of thyroid gl and Domonique Nevills, [facility] 04/03/2021 Z79.899 Other terminal worker (current) drug t herapy Domonique Nevills, [employer] Plan of Treatment Future Appointment(s):* 10/08/2021 9:00 am - RICCARDO Khan at [facility] 07/06/2021 - RICCARDO Khan* I10 Essential (primary) hypertension* Comments: * Today, her BP is at 148/82.She was advised to continue with her current line of therapies. She will benefit from maintaining a low-sodium diet. We will continue to monitor. * E03.9 Hypothyroidism, unspecified* Comments:* She is s/p thyroidectomy for papillary thyroid cancer. She has postprocedural hypothyroidism. Her TSH is low at <0.005. The patient was advised to continue current medication regimen. To FU Dr. Kelly who manages her thyroid as scheduled.We will need to monitor her TSH periodically. * Follow up:* FU in 3 months, fasting labs a week prior. * E11.65 Type 2 diabetes mellitus with hyperglycemia* Comments:* Her fasting glucose is high at 166 with an A1c at 7.The patient was advised to continue with her current medication regimen. She will benefit from maintaining a diabetic diet and a regular exercise regimen. Discussed decrease in sugar inta ke;No sugared drinksDo not keep sugar out where it can be readily usedNo concentrated sweets or baked goodsChoose fruits or vegetable snacksIncrease water intake.We will continue to monitor. * Follow up:* FU in 3 months, fasting labs a week prior. * E78.2 Mixed hyperlipidemia* Comments:* Labs reviewed with the patient in detail.Lipid panel showed:CHOL at 196.TRG high at 158.HDL at 43.LDL high at 125.She will continue with her current regimen. She was encouraged to maintain a low cholesterol diet and a regular exercise regimen. We will continue to monitor. LDL and TRG elevated, discussed dietary changes to improve, avoiding meat and dairy products, avoiding processed foodsDecrease saturated Fats (meat, dairy products and processed foods)Increase Unsaturated fats (fish, plants, nuts, seeds, beans and vegetable oils)Increase aerobic exerciseIncrease water intake Read Labels * Follow up:* FU in 3 months, fasting labs a week prior. * C73 Malignant neoplasm of thyroid gland* Comments:* She is s/p thyroidectomy for papillary thyroid cancer. She has postprocedural hypothyroidism. * Z79.899 Other prison (current) drug therapy* Comments:* Patient to continue to follow the current plan of care and to look for any new or worsening symptoms. We will continue to monitor through periodic blood work. * Follow up:* FU in 3 months, fasting labs a week prior. * D64.9 Anemia, unspecified* Comments:* Currently stable.To continue current medication and plan of care.We will continue to monitor. * E04.2 Nontoxic multinodular goiter* Comments:* he is s/p thyroidectomy for papillary thyroid cancer. She has postprocedural hypothyroidism. To have the routine labs done to evaluate further.Further plans to follow the lab results.We will continue to monitor. Functional Status Description No Information Available Mental Status Description No Information Available Referrals Refer to Reason for Referral Status Appt Date [facility] Please see aury stewart for post menopausal bleeding. Thank you! Created [address] [place] [phone]
--- OUTSIDE RECORDS SUMMARY | 2021-08-28 08:23 | CCD | Continuity of Care Document ---
Author Author Ramya SANTAMARIA RETARDER OPERATOR Organization Unknown Address [address] [place] [address] Phone [phone] Care Team Providers Care Dish Cloth Inspector Name Role Phone Rosa Brannon AUTM [phone] Domonique Aragon RETARDER OPERATOR AUTM [phone] Problems Active Problems Provider Date Essential hypertension Onset: 07/18/2019 Pure hypercholesterolemia Onset: 019 Social History Type Date Description Comments Sex Unknown ETOH Use Occasionally consumes alcohol Tobacco Use Start: Unknown Patient has never smoked Smoking Status Reviewed: 04/13/21 Patient has never smoked Allergies, Adverse Reactions, [...] 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 - ue April 2021 90tabs C73 Patricia Kelly MD 12/18/2019 E89.0 Farxiga 5mg Tablets 1 by mouth every day [...] Available Vital Signs Date Vital Result Comment 04/13/2021 8:31am BP Systolic 122 mmHg BP Diastolic 70 mmHg Heart Rate 53 /min Height 65 inches 5'5" Weight 193.12 lb BMI (Body Mass Index) 32.1 kg/m2 O2 % BldC Oximetry 98 % 03/19/2021 12:54pm Body Temperature 97.5 F Results Test Acquired Date Facility Test Result H/L Range Note Laboratory test finding 05/14/2021 [facility] [address] [place] [address] [phone] Non Cytology Laboratory Manager/Cytology Req For Servi (SEE NOTE) 1 1 SPECIMEN: FNA rig ht neck mass [facility] SPE[facility] ADEQUACY: Satisfactory for evaluation CATEGORIZATION: Atypical [...] additional material for evaluation. See RELL report [id number] scanned in EMR pathology. 05/19/2021 - 07 Signed ELIZABETH PACK (ASCP) 05/15/2021 0834 (Prelim) Signed Brandee Amato MD 05/19/2021 0730 Procedures Date Code Description Status 04/13/2021 10234 Office/Outpatient Established Mo d MDM 30-39 Min Completed 03/19/2021 69907 Office/Outpatient Established Mo d MDM 30-39 Min Completed 03/03/2021 11893 Injec Therapeutic Or Diagnostic Subcut Or Intramuscular Completed 03/02/2021 26540 Office/Outpatient Established Mo d MDM 30-39 Min Completed 03/02/2021 61992 Injec Therapeutic Or Diagnostic Subcut Or Intramuscular Completed Medical Devices Description No Information Available Encounters Type Date Location Provider Dx Diagnosis Office Visit 04/13/2021 8:30a DR. Patricia Kelly [...] hypothyroidis m Assessments Date Code Description Provider 04/13/2021 C73 Malignant neoplasm of thyroid gl and Patricia Kelly MD 04/13/2021 E89.0 Postprocedural hypothyroidism Cl anurag Kelly MD 03/19/2021 C73 Malignant neoplasm of thyroid gl and Patricia Kelly MD 03/19/2021 E89.0 Postprocedural hypothyroidism Cl anuarg Kelly MD 03/03/2021 C73 Malignant neoplasm of thyroid gl and Mili Santamaria NP 03/03/2021 E89.0 Postprocedural hypothyroidism Joycelyn Santamaria NP 03/02/2021 C73 Malignant neoplasm of thyroid gl and Mili Santamaria NP 03/02/2021 E89.0 Postprocedural hypothyroidism Joycelyn Santamaria NP Plan of Treatment Future Appointment(s):* 06/08/2021 4:00 pm - Mili Santamaria NP at DR. Patricia Kelly 04/13/2021 - Patricia Kelly MD* C73 Malignant neoplasm of thyroid gland* Comments:* 11/2019:patient presents with a new diagnosis [...] lab follow-up recommended as well as neck ultrasound. Now stimulated thyroglobulin level = 2.3. Slight increase. Repeat neck ultrasound performed- enlargement of a lymph node. will have FNA of this LN - * E89.0 Postprocedural hypothyroidism* Comments:* Post operative [...] Status Appt [place] [address] PER WEB NO AUTH REQUIRED. JEANA Created [address] [place] [address] [place], [place] [id number] [phone] Mili Santamaria NP NECK U/S NO AUTH REQUIRED BA SED ON MEDICAL NECESSITY. JEANA Created [address] [place] [address] [address] [place] [address] [phone] [place] [address] WBS PER RJ [facility]. JEANA Created [address] [place] [address], [address] [address] [phone] Patricia Kelly MD THYROGEN AND WHOLE BODY SCAN WITH DURAN [id number] [phone] NO AUTH REQUIRED. PER JOSE @ [facility]. REF # [id number]. Created [address] [place] [address], [address] [place] [address] [phone]
--- OUTSIDE RECORDS SUMMARY | 2021-08-28 08:23 | CCD | Continuity of Care Document ---
Author Author Ramya ARAGON CORPORATE TRUST OFFICER Organization Unknown Address [address] [place] [address] Phone [phone] Care Team Providers Care Car Rental Deliverer Name Role Phone Domonique Aragon AUTM [phone] Problems Active Problems Provider Date Hypothyroidism LAUREL Felder, PNP Onset: 0 Type II diabetes mellitus uncontrolled LAUREL Felder P FEED GRINDER Onset: 07/31/2020 Essential hypertension LAUREL Felder, PNP [...] 8 hours for dizziness as needed 90tabs LAUREL Bloom, PNP 11/10/2018 Metformin HCL ER 500mg Tablets [...] twice a day Unknown 0 History Medications Diflucan 150mg Tablets take 1 tab by [...] Available Procedures Date Code Description Status 04/03/2021 85972 Office/Outpatient Established Mo d MDM 30-39 Min Completed 12/22/2020 [id number] Mammogram Completed Medical Devices Description No Information Available Encounters Description No Information Available Assessments Date Code Description Provider 07/06/2021 I10 Essential (primary) hypertension Domonique Aragon, [facility] 07/06/2021 E03.9 Hypothyroidism, unspecified Linda Aragon, [facility] 07/06/2021 E11.65 Type 2 diabetes mellitus with hy perglycemia Domonique Aragon [facility] 07/06/2021 E78.2 Mixed hyperlipidemia Domonique Nevil ls, [employer]IC[employer] 07/06/2021 C73 Malignant neoplasm of thyroid gl and Domonique Nevills, [employer] OFFIC[employer] 07/06/2021 Z79.899 Other tank terminal gauger (current) drug t herapy Domonique Nevills, [employer] 07/06/2021 D64.9 Anemia, unspecified Domonique Nevill s, [employer] OFFIC[employer] 07/06/2021 E04.2 Nontoxic multinodular goiter Yovani en Nevills, [employer]POR[employer] OFFICER 04/03/2021 E03.9 Hypothyroidism, unspecified Linda n Nevills, [employer]PORATE TRUST OFFICER 04/03/2021 E11.65 Type 2 diabetes mellitus with hy perglycemia Domonique Nevills, [employer]POR[employer] OFFIC[employer] 04/03/2021 E78.2 Mixed hyperlipidemia Domonique Nevil ls, CORPORATE TRUST OFFICER 04/03/2021 I10 Essential (primary) hypertension Domonique Nevills, CORPORATE TRUST OFFICER 04/03/2021 C73 Malignant neoplasm of thyroid gl and Domonique Nevills, CORPORATE TRUST OFFICER 04/03/2021 Z79.899 Other tank terminal gauger (current) drug t herapy RICCARDO Khan Plan of Treatment Future Appointment(s):* 10/08/2021 9:00 am - RICCARDO Khan at [facility] 07/06/2021 - RICCARDO Khan* I10 Essential (primary) [...] a week prior. * E78.2 Mixed hyperlipidemia* New Labs:* Cve Panel, Scheduled: 09/21/21 * Hgba1c, Scheduled: 09/21/21 * Comments:* Labs reviewed with the patient in [...] She has postprocedural hypothyroidism. * Z79.899 Other senior care (current) drug therapy* New Labs:* Cve Panel, Scheduled: 09/21/21 * Hgba1c, Scheduled: 09/21/21 * CBC W/Automated Diff, Scheduled: 09/21/21 * Comprehensive Metabolic Panel, Scheduled: 09/21/21 * .Thyroid Panel WWW, Scheduled: 09/21/21 * Comments:* Patient to continue to follow the current plan of care and to look for any new or worsening symptoms. We will continue to monitor through periodic blood work. * Follow up:* FU in 3 months, fasting labs a week prior. * D64.9 Anemia, unspecified* New Labs:* Cve Panel, Scheduled: 09/21/21 * Hgba1c, Scheduled: 09/21/21 * CBC W/Automated Diff, Scheduled: 09/21/21 * Comprehensive Metabolic Panel, Scheduled: 09/21/21 * .Thyroid Panel WWW, Scheduled: 09/21/21 * Comments:* Currently stable.To continue current medication and plan of care.We will continue to monitor. * E04.2 Nontoxic multinodular goiter* New Labs:* CBC W/Automated Diff, Scheduled: 09/21/21 * Comprehensive Metabolic Panel, Scheduled: 09/21/21 * .Thyroid Panel WWW, Scheduled: 09/21/21 * Comments:* he is s/p thyroidectomy for papillary thyroid cancer. She has postprocedural hypothyroidism. To have the routine labs done to evaluate further.Further plans to follow the lab results.We will continue to monitor. Functional Status Description No Information Available Mental Status Description No Information Available Referrals Description No Information Available
--- OUTSIDE RECORDS SUMMARY | 2021-08-28 08:24 | CCD ---
Author Author [facility] Organization [facility] Address Unknown Phone Unavailable Care Team Providers Care Golf Course Manager Name Role Phone Brandee Amato MD Unavailable Unavailable Brandee Amato MD Unavailable Unavailable Brandee Amato MD Unavailable Unavailable Brandee Amato MD Unavailable Unavailable Brandee Amato MD Unavailable Unavailable Brandee Amato MD Unavailable Unavailable Nevills, C Domonique ASSISTANT MECHANIC Unavailable Unavailable Nevills, C Domonique ASSISTANT MECHANIC Unavailable Unavailable Nevills, C Domonique ASSISTANT MECHANIC Unavailable Unavailable Nevills, C Domonique ASSISTANT MECHANIC Unavailable Unavailable Nevills, C Domonique ASSISTANT MECHANIC Unavailable Unavailable Nevills, C Domonique ASSISTANT MECHANIC Unavailable Unavailable Nevills, C Domonique ASSISTANT MECHANIC Unavailable Unavailable Nevills, C Doomnique ASSISTANT MECHANIC Unavailable Unavailable Nevills, C Domonique ASSISTANT MECHANIC Unavailable Unavailable Nevills, C Domonique ASSISTANT MECHANIC Unavailable Unavailable Nevills, C Domonique ASSISTANT MECHANIC Unavailable Unavailable Nevills, C Domonique ASSISTANT MECHANIC Unavailable Unavailable Nevills, C Domonique ASSISTANT MECHANIC Unavailable Unavailable Nevills, C Domonique ASSISTANT MECHANIC Unavailable Unavailable Nevills, C Domonique ASSISTANT MECHANIC Unavailable Unavailable Nevills, C Domonique ASSISTANT MECHANIC Unavailable Unavailable Nevills, C Domonique ASSISTANT MECHANIC Unavailable Unavailable Nevills, C Domonique ASSISTANT MECHANIC Unavailable Unavailable Nevills, C Domonique ASSISTANT MECHANIC Unavailable Unavailable Nevills, C Domonique ASSISTANT MECHANIC Unavailable Unavailable Nevills, C Domonique ASSISTANT MECHANIC Unavailable Unavailable Nevills, C Domonique ASSISTANT MECHANIC Unavailable Unavailable Nevills, C Domonique ASSISTANT MECHANIC Unavailable Unavailable Nevills, C Domonique ASSISTANT MECHANIC Unavailable Unavailable Nevills, C Domonique ASSISTANT MECHANIC Unavailable Unavailable Nevills, C Domonique ASSISTANT MECHANIC Unavailable Unavailable Nevills, C Domonique ASSISTANT MECHANIC Unavailable Unavailable Nevills, C Domonique ASSISTANT MECHANIC Unavailable Unavailable Nevills, C Domonique ASSISTANT MECHANIC Unavailable Unavailable Nevills, C Domonique ASSISTANT MECHANIC Unavailable Unavailable Nevills, C Domonique ASSISTANT MECHANIC Unavailable Unavailable Nevills, C Domonique ASSISTANT MECHANIC Unavailable Unavailable Nevills, C Domonique ASSISTANT MECHANIC Unavailable Unavailable Nevills, C Domonique ASSISTANT MECHANIC Unavailable Unavailable Nevills, C Domonique ASSISTANT MECHANIC Unavailable Unavailable HINA, B CLEMENTINE ASSISTANT MECHANIC Unavailable Unavailable HINA, B CLEMENTINE ASSISTANT MECHANIC Unavailable Unavailable HINA, B CLEMENTINE ASSISTANT MECHANIC Unavailable Unavailable HINA, B CLEMENTINE ASSISTANT MECHANIC Unavailable Unavailable HINA, B CLEMENTINE ASSISTANT MECHANIC Unavailable Unavailable HINA, B CLEMENTINE ASSISTANT MECHANIC Unavailable Unavailable HINA, B CLEMENTINE ASSISTANT MECHANIC Unavailable Unavailable HINA, B CLEMENTINE ASSISTANT MECHANIC Unavailable Unavailable HINA, B CLEMENTINE ASSISTANT MECHANIC Unavailable Unavailable HINA, B CLEMENTINE ASSISTANT MECHANIC Unavailable Unavailable HINA, B CLEMENTINE ASSISTANT MECHANIC Unavailable Unavailable HINA, B CLEMENTINE ASSISTANT MECHANIC Unavailable Unavailable HINA, B CLEMENTINE ASSISTANT MECHANIC Unavailable Unavailable HINA, B CLEMENTINE ASSISTANT MECHANIC Unavailable Unavailable HINA, B CLEMENTINE ASSISTANT MECHANIC Unavailable Unavailable HINA, B CLEMENTINE ASSISTANT MECHANIC Unavailable Unavailable HINA, B CLEMENTINE ASSISTANT MECHANIC Unavailable Unavailable HINA, B CLEMENTINE ASSISTANT MECHANIC Unavailable Unavailable HINA, B CLEMENTINE ASSISTANT MECHANIC Unavailable Unavailable HINA, B CLEMENTINE ASSISTANT MECHANIC Unavailable Unavailable HINA, B CLEMENTINE ASSISTANT MECHANIC Unavailable Unavailable HINA, B CLEMENTINE ASSISTANT MECHANIC Unavailable Unavailable HINA, B CLEMENTINE ASSISTANT MECHANIC Unavailable Unavailable HINA, B CLEMENTINE ASSISTANT MECHANIC Unavailable Unavailable HINA, B CLEMENTINE ASSISTANT MECHANIC Unavailable Unavailable HINA, B CLEMENTINE ASSISTANT MECHANIC Unavailable Unavailable HINA, B CLEMENTINE ASSISTANT MECHANIC Unavailable Unavailable HINA, B CLEMENTINE ASSISTANT MECHANIC Unavailable Unavailable HINA, B CLEMENTINE ASSISTANT MECHANIC Unavailable Unavailable HINA, B CLEMETNINE ASSISTANT MECHANIC Unavailable Unavailable HINA, B CLEMENTINE ASSISTANT MECHANIC Unavailable Unavailable HINA, B CLEMENTINE ASSISTANT MECHANIC Unavailable Unavailable HINA, B CLEMENTINE ASSISTANT MECHANIC Unavailable Unavailable HINA, B CLEMENTINE ASSISTANT MECHANIC Unavailable Unavailable HINA, B CLEMENTINE ASSISTANT MECHANIC Unavailable Unavailable HINA, B CLEMENTINE ASSISTANT MECHANIC Unavailable Unavailable HINA, B CLEMENTINE ASSISTANT MECHANIC Unavailable Unavailable HINA, B CLEMENTINE ASSISTANT MECHANIC Unavailable Unavailable HINA, B CLEMENTINE ASSISTANT MECHANIC Unavailable Unavailable HINA, B CLEMENTINE ASSISTANT MECHANIC Unavailable Unavailable HINA, B CLEMENTINE ASSISTANT MECHANIC Unavailable Unavailable HINA, B CLEMENTINE ASSISTANT MECHANIC Unavailable Unavailable HINA, B CLEMENTINE ASSISTANT MECHANIC Unavailable Unavailable HINA, B CLEMENTINE ASSISTANT MECHANIC Unavailable Unavailable HINA, B CLEMENTINE ASSISTANT MECHANIC Unavailable Unavailable HINA, B CLEMENTINE ASSISTANT MECHANIC Unavailable Unavailable HINA, B CLEMENTINE ASSISTANT MECHANIC Unavailable Unavailable HINA, B CLEMENTINE ASSISTANT MECHANIC Unavailable Unavailable HINA, B CLEMENTINE ASSISTANT MECHANIC Unavailable Unavailable HINA, B CLEMENTINE ASSISTANT MECHANIC Unavailable Unavailable HINA, B CLEMENTINE ASSISTANT MECHANIC Unavailable Unavailable HINA, B CLEMENTINE ASSISTANT MECHANIC Unavailable Unavailable HINA, B CLEMENTINE ASSISTANT MECHANIC Unavailable Unavailable HINA, B CLEMENTINE ASSISTANT MECHANIC Unavailable Unavailable HINA, B CLEMENTINE ASSISTANT MECHANIC Unavailable Unavailable HINA, B CLEMENTINE ASSISTANT MECHANIC Unavailable Unavailable HINA, B CLEMENTINE ASSISTANT MECHANIC Unavailable Unavailable HINA, B CLEMENTINE ASSISTANT MECHANIC Unavailable Unavailable HINA, B CLEMENTINE ASSISTANT MECHANIC Unavailable Unavailable HINA, B CLEMENTINE ASSISTANT MECHANIC Unavailable Unavailable HINA, B CLEMENTINE ASSISTANT MECHANIC Unavailable Unavailable HINA, B CLEMENTINE ASSISTANT MECHANIC Unavailable Unavailable Fish, B Patricia DYER Unavailable Unavailable Fish, B Patricia DYER Unavailable Unavailable Fish, B Patricia DYER Unavailable Unavailable Fish, B Patricia DYER Unavailable Unavailable Fish, B Patricia DYER Unavailable Unavailable Fish, B Patricia DYER Unavailable Unavailable Fish, B Patricia DYER Unavailable Unavailable Fish, B Patricia DYER Unavailable Unavailable Fish, B Patricia DYER Unavailable Unavailable Fish, B Patricia DYER Unavailable Unavailable Fish, B Patricia DYER Unavailable Unavailable Fish, B Patricia DYER Unavailable Unavailable Fish, B Patricia DYER Unavailable Unavailable Fish, Jonathan Gomez MD Unavailable Unavailable Fish, B Patricia DYER Unavailable Unavailable Fish, B Patricia DYER Unavailable Unavailable Fish, B Patricia DYER Unavailable Unavailable Fish, B Patricia DYER Unavailable Unavailable Fish, B Patricia DYER Unavailable Unavailable Fish, B Patricia DYER Unavailable Unavailable Fish, B Patricia DYER Unavailable Unavailable Fish, B Patricia DYER Unavailable Unavailable Fish, B Patricia DYER Unavailable Unavailable Fish, B Patricia DYER Unavailable Unavailable Fish, B Patricia DYER Unavailable Unavailable Fish, B Patricia DYER Unavailable Unavailable Fish, B Patricia DYER Unavailable Unavailable Fish, B Patricia DYER Unavailable Unavailable Fish, B Patricia DYER Unavailable Unavailable Fish, B Patricia DYER Unavailable Unavailable Fish, B Patricia DYER Unavailable Unavailable Fish, B Patricia DYER Unavailable Unavailable Fish, B Patricia DYER Unavailable Unavailable Fish, B Patricia DYER Unavailable Unavailable Fish, B Patricia DYRE Unavailable Unavailable Fish, B Patricia DYER Unavailable Unavailable Fish, B Patricia DYER Unavailable Unavailable Fish, B Patricia DYER Unavailable Unavailable Fish, B Patricia DYER Unavailable Unavailable Fish, B Patricia DYER Unavailable Unavailable Fish, B Patricia DYER Unavailable Unavailable Fish, B Patricia DYER Unavailable Unavailable Fish, B Patricia DYER Unavailable Unavailable Fish, B Patricia DYER Unavailable Unavailable Fish, B Patricia DYER Unavailable Unavailable Fish, B Patricia DYER Unavailable Unavailable Fish, B Patricia DYER Unavailable Unavailable Fish, B Patricia DYER Unavailable Unavailable Fish, B Patricia DYER Unavailable Unavailable Fish, B Patricia DYER Unavailable Unavailable Fish, B Patricia DYER Unavailable Unavailable Fish, B Patricia DYER Unavailable Unavailable Fish, B Patricia DYER Unavailable Unavailable Fish, B Patricia DYER Unavailable Unavailable Fish, B Patricia DYER Unavailable Unavailable Fish, B Patricia DYER Unavailable Unavailable Fish, B Patricia DYER Unavailable Unavailable Fish, B Patricia DYER Unavailable Unavailable Fish, B Patricia DYER Unavailable Unavailable Fish, B Patricia DYER Unavailable Unavailable Fish, B Patricia DYER Unavailable Unavailable Fish, B Patricia DYER Unavailable Unavailable Fish, B Patricia DYER Unavailable Unavailable Fish, B Patricia DYER Unavailable Unavailable Fish, B Patricia DYER Unavailable Unavailable Nevills, C Domonique ASSISTANT MECHANIC Unavailable Unavailable Nevills, C Domonique ASSISTANT MECHANIC Unavailable Unavailable Nevills, C Domonique ASSISTANT MECHANIC Unavailable Unavailable Nevills, C Domonique ASSISTANT MECHANIC Unavailable Unavailable Nevills, C Domonique ASSISTANT MECHANIC Unavailable Unavailable Nevills, C Domonique ASSISTANT MECHANIC Unavailable Unavailable Nevills, C Domonique ASSISTANT MECHANIC Unavailable Unavailable Nevills, C Domonique ASSISTANT MECHANIC Unavailable Unavailable Nevills, C Domonique ASSISTANT MECHANIC Unavailable Unavailable Nevills, C Domonique ASSISTANT MECHANIC Unavailable Unavailable Nevills, C Domonique ASSISTANT MECHANIC Unavailable Unavailable Nevills, C Domonique ASSISTANT MECHANIC Unavailable Unavailable Nevills, C Domonique ASSISTANT MECHANIC Unavailable Unavailable Nevills, C Domonique ASSISTANT MECHANIC Unavailable Unavailable Nevills, C Domonique ASSISTANT MECHANIC Unavailable Unavailable Nevills, C Domonique ASSISTANT MECHANIC Unavailable Unavailable Nevills, C Domonique ASSISTANT MECHANIC Unavailable Unavailable Nevills, C Domonique ASSISTANT MECHANIC Unavailable Unavailable Nevills, C Domonique ASSISTANT MECHANIC Unavailable Unavailable Nevills, C Domonique ASSISTANT MECHANIC Unavailable Unavailable Nevills, C Domonique ASSISTANT MECHANIC Unavailable Unavailable Nevills, C Domonique ASSISTANT MECHANIC Unavailable Unavailable Nevills, C Domonique ASSISTANT MECHANIC Unavailable Unavailable Nevills, C Domonique ASSISTANT MECHANIC Unavailable Unavailable Nevills, C Domonique ASSISTANT MECHANIC Unavailable Unavailable Nevills, C Domonique ASSISTANT MECHANIC Unavailable Unavailable Nevills, C Domonique ASSISTANT MECHANIC Unavailable Unavailable Nevills, C Domonique ASSISTANT MECHANIC Unavailable Unavailable Nevills, C Domonique ASSISTANT MECHANIC Unavailable Unavailable Nevills, C Domonique ASSISTANT MECHANIC Unavailable Unavailable Nevills, C Domonique ASSISTANT MECHANIC Unavailable Unavailable Nevills, C Domonique ASSISTANT MECHANIC Unavailable Unavailable Nevills, C Domonique ASSISTANT MECHANIC Unavailable Unavailable Nevills, C Domonique ASSISTANT MECHANIC Unavailable Unavailable Nevills, C Domonique ASSISTANT MECHANIC Unavailable Unavailable Fish, B Patricia DYER Unavailable Unavailable Fish, Jonathan Gomez MD Unavailable Unavailable Fish, Jonathan Gomez MD Unavailable Unavailable Fish, Jonathan Gomez MD Unavailable Unavailable Fish, B Patricia DYER Unavailable Unavailable Fish, B Patricia DYER Unavailable Unavailable Fish, B Patricia DYER Unavailable Unavailable Fish, B Patricia DYER Unavailable Unavailable Fish, B Patricia DYER Unavailable Unavailable Fish, B Patricia DYER Unavailable Unavailable Fish, B Patricia DYER Unavailable Unavailable Fish, B Patricia DYER Unavailable Unavailable Fish, B Patricia DYER Unavailable Unavailable Fish, B Patricia DYER Unavailable Unavailable Fish, B Patricia DYER Unavailable Unavailable Fish, B Patricia DYER Unavailable Unavailable Fish, B Patricia DYER Unavailable Unavailable Fish, B Patricia DYER Unavailable Unavailable Fish, Jonathan Gomez MD Unavailable Unavailable Fish, B Patricia DYER Unavailable Unavailable Fish, B Patricia DYER Unavailable Unavailable Fish, B Patricia DYER Unavailable Unavailable Fish, B Patricia DYER Unavailable Unavailable Fish, B Patricia DYER Unavailable Unavailable Fish, B Patricia DYER Unavailable Unavailable Fish, Jonathan Gomez MD Unavailable Unavailable Fish, Jonathan Gomez MD Unavailable Unavailable Fish, B Patricia DYER Unavailable Unavailable Fish, Jonathan Gomez MD Unavailable Unavailable Fish, B Patricia DYER Unavailable Unavailable Fish, B Patricia DYER Unavailable Unavailable Fish, B Patricia DYER Unavailable Unavailable Fish, B Patricia DYER Unavailable Unavailable Fish, Jonathan Gomez MD Unavailable Unavailable Fish, Jonathan Gomez MD Unavailable Unavailable Fish, Jonathan Gomez MD Unavailable Unavailable Fish, Jonathan Gomez MD Unavailable Unavailable Fish, Jonathan Gomez MD Unavailable Unavailable Fish, B Patricia DYER Unavailable Unavailable Fish, B Patricia DYER Unavailable Unavailable Fish, Jonathan Gomez MD Unavailable Unavailable Fish, B Patricia DYER Unavailable Unavailable Fish, Jonathan Gomez MD Unavailable Unavailable Fish, Jonathan Gomez MD Unavailable Unavailable Fish, B Patricia DYER Unavailable Unavailable Fish, Jonathan Gomez MD Unavailable Unavailable Fish, B Patricia DYER Unavailable Unavailable Fish, B Patricia DYER Unavailable Unavailable Fish, B Patricia DYER Unavailable Unavailable Fish, Jonathan Gomez MD Unavailable Unavailable Fish, Jonathan Gomez MD Unavailable Unavailable Robin B Patricia DYER Unavailable Unavailable Fish B Patricia DYER Unavailable Unavailable Fish B Patricia DYER Unavailable Unavailable Robin B Patricia DYER Unavailable Unavailable Robin B Patricia DYER Unavailable Unavailable Robin B Patricia DYER Unavailable Unavailable Fish B Patricia DYER Unavailable Unavailable Fish B Patricia DYER Unavailable Unavailable Fish B Patricia DYER Unavailable Unavailable Fish, B Patricia DYER Unavailable Unavailable Fish, B Patricia DYER Unavailable Unavailable Fish, B Patricia DYER Unavailable Unavailable Fish, B Patricia DYER Unavailable Unavailable Fish, B Patricia DYER Unavailable Unavailable Brannon, L Rosa PA Unavailable Unavailable Brannon, L Rosa PA Unavailable Unavailable Brannon, L Rosa PA Unavailable Unavailable Brannon, L Rosa PA Unavailable Unavailable Brannon, L Rosa PA Unavailable Unavailable Brannon, L Rosa PA Unavailable Unavailable Brannon, L Rosa PA Unavailable Unavailable Brannon, L Rosa PA Unavailable Unavailable Brannon, L Rosa PA Unavailable Unavailable Brannon, L Rosa PA Unavailable Unavailable Brannon, L Rosa PA Unavailable Unavailable Brannon, L Rosa PA Unavailable Unavailable Brannon, L Rosa PA Unavailable Unavailable Brannon, L Rosa PA Unavailable Unavailable Brannon, L Rosa PA Unavailable Unavailable Brannon, L Rosa PA Unavailable Unavailable Brannon, L Rosa PA Unavailable Unavailable Brannon, L Rosa PA Unavailable Unavailable Brannon, L Rosa PA Unavailable Unavailable Brannon, L Rosa PA Unavailable Unavailable Brannon, L Rosa PA Unavailable Unavailable Brannon, L Rosa PA Unavailable Unavailable Brannon, L Rosa PA Unavailable Unavailable Brannon, L Rosa PA Unavailable Unavailable Brannon, L Rosa PA Unavailable Unavailable Brannon, L Rosa PA Unavailable Unavailable Brannon, L Rosa PA Unavailable Unavailable Brannon, L Rosa PA Unavailable Unavailable Brannon, L Rosa PA Unavailable Unavailable Brannon, L Rosa PA Unavailable Unavailable Brannon, L Rosa PA Unavailable Unavailable Brannon, L Rosa PA Unavailable Unavailable Brannon, L Rosa PA Unavailable Unavailable Brannno, L Rosa PA Unavailable Unavailable Brannon, L Rosa PA Unavailable Unavailable Brannon, L Rosa PA Unavailable Unavailable Brannon, L Rosa PA Unavailable Unavailable Brannon, L Rosa PA Unavailable Unavailable Brannon, L Rosa PA Unavailable Unavailable Milady Landis ANP-BC Unavailable Unavailable Milady Landis ANP-BC Unavailable Unavailable Boby, Milady Yulissa ANP-BC Unavailable Unavailable Boby, Milady Yulissa ANP-BC Unavailable Unavailable Boby, Milady Yulissa ANP-BC Unavailable Unavailable Boby, Milady Yulissa ANP-BC Unavailable Unavailable Boby, Milady Yulissa ANP-BC Unavailable Unavailable Boby, Milady Yulissa ANP-BC Unavailable Unavailable Boby, Milady Yulissa ANP-BC Unavailable Unavailable Boby, Milady Yulissa ANP-BC Unavailable Unavailable Boby, Milady Yulissa ANP-BC Unavailable Unavailable Boby, Milady Yulissa ANP-BC Unavailable Unavailable Boby, Milady Yulissa ANP-BC Unavailable Unavailable Boby, Milady Yulissa ANP-BC Unavailable Unavailable Boby, Milady Yulissa ANP-BC Unavailable Unavailable Boby, Milady Yulissa ANP-BC Unavailable Unavailable Boby, Milady Yulissa ANP-BC Unavailable Unavailable Boby, Milady Yulissa ANP-BC Unavailable Unavailable Boby, Milady Yulissa ANP-BC Unavailable Unavailable Boby, Milady Yulissa ANP-BC Unavailable Unavailable Boby, Milady Yulissa ANP-BC Unavailable Unavailable Boby, Milady Yulissa ANP-BC Unavailable Unavailable Boby, Milady Yulissa ANP-BC Unavailable Unavailable Boby, Milady Yulissa ANP-BC Unavailable Unavailable Boby, Milady Yulissa ANP-BC Unavailable Unavailable Boby, Milady Yulissa ANP-BC Unavailable Unavailable Boby, Milady Yulissa ANP-BC Unavailable Unavailable Boby, Milady Yulissa ANP-BC Unavailable Unavailable Boby, Milady Yulissa ANP-BC Unavailable Unavailable Boby, Milady Yulissa ANP-BC Unavailable Unavailable Boby, Milady Yulissa ANP-BC Unavailable Unavailable Boby, Milady Yulissa ANP-BC Unavailable Unavailable Boby, Milady Yulissa ANP-BC Unavailable Unavailable Boby, Milady Yulissa ANP-BC Unavailable Unavailable Boby, Milady Yulissa ANP-BC Unavailable Unavailable Boby, Milady Yulissa ANP-BC Unavailable Unavailable Boby, Milady Yulissa ANP-BC Unavailable Unavailable Boby, Milady Yulissa ANP-BC Unavailable Unavailable Boby, Milady Yulissa ANP-BC Unavailable Unavailable Boby, Milady Yulissa ANP-BC Unavailable Unavailable Boby, Milady Yulissa ANP-BC Unavailable Unavailable Boby, Milady Yulissa ANP-BC Unavailable Unavailable Boby, Milady Yulissa ANP-BC Unavailable Unavailable Boby, Milady Yulissa ANP-BC Unavailable Unavailable Boby, Milady Yulissa ANP-BC Unavailable Unavailable Boby, Milady Yulissa ANP-BC Unavailable Unavailable Boby, Milady Yulissa ANP-BC Unavailable Unavailable Boby, Milady Yulissa ANP-BC Unavailable Unavailable Boby, Milady Yulissa ANP-BC Unavailable Unavailable Boby, Milady Yulissa ANP-BC Unavailable Unavailable Boby, Milady Yulissa ANP-BC Unavailable Unavailable Boby, Milady Yulissa ANP-BC Unavailable Unavailable Boby, Milady Yulissa ANP-BC Unavailable Unavailable Boby, Milady Yulissa ANP-BC Unavailable Unavailable Boby, Milady Yulissa ANP-BC Unavailable Unavailable Boby, Milady Yulissa ANP-BC Unavailable Unavailable Boby, Milady Yulissa ANP-BC Unavailable Unavailable Boby, Milady Yulissa ANP-BC Unavailable Unavailable Boby, Milady Yulissa ANP-BC Unavailable Unavailable Boby, Milady Yulissa ANP-BC Unavailable Unavailable Boby, Milady Yulissa ANP-BC Unavailable Unavailable Boby, Milady Yulissa ANP-BC Unavailable Unavailable Boby, Milady Yulissa ANP-BC Unavailable Unavailable Boby, Milady Yulissa ANP-BC Unavailable Unavailable Boby, Milady Yulissa ANP-BC Unavailable Unavailable Boby, Milady Yulissa ANP-BC Unavailable Unavailable Re-disclosure Warning The records that you are about to access may contain information from federally-assisted alcohol or drug abuse programs. If such information is present, then the following federally mandated warning applies: This information has been disclosed to you from records protected by federal confidentiality rules (42 CFR part 2). The federal rules prohibit you from making any further disclosure of this information unless further disclosure is expressly permitted by the written consent of the person to whom it pertains or as otherwise permitted by 42 CFR part 2. A general authorization for the release of medical or other information is NOT sufficient for this purpose. The Federal rules restrict any use of the information to criminally investigate or prosecute any alcohol or drug abuse patient.The records that you are about to access may contain highly sensitive health information, the redisclosure of which is protected by Article 27-F of the [facility] Public Health law. If you continue you may have access to information: Regarding HIV / AIDS; Provided by facilities licensed or operated by the [facility] Office of Mental Health; or Provided by the [facility] Office for People With Developmental Disabilities. If such information is present, then the following [facility] mandated warning applies: This information has been disclosed to you from confidential records which are protected by state law. State law prohibits you from making any further disclosure of this information without the specific written consent of the person to whom it pertains, or as otherwise permitted by law. Any unauthorized further disclosure in violation of state law may result in a fine or fci sentence or both. A general authorization for the release of medical or other information is NOT sufficient authorization for further disc losure. Allergies and Adverse Reactions Type Description Substance Reaction Status Data Source(s ) Propensity to adverse reactions ROSUVASTATIN CALCIUM Rosuvastatin C alcium Active [facility] Family History Family Member Name Family Member Gender Family Member Status Date o f Status Description Data Source(s) Unknown Male Problem [facility] ([facility]) Unknown Unknown Problem [facility] ([facility] ) Cousin Encounters Encounter Providers Location Date Indications Data Source(s ) Outpatient Attender: Domonique Aragon NP 07/06 02:49:00 PM EDT - 07/06/2021 02:49:00 PM EDT [facility] Outpatient Attender: CLEMENTINE SANTAMARIA NP Physical Therapy 04:00:00 PM EDT [facility] ([facility]) Outpatient Admitter: Brandee Amato MDReferrer: Brandee Amato MD 05/14/2021 12:00:00 AM EDT Enlarged lymph nodes, unspecified [facility] Enlarged lymph nodes, unspecified Outpatient Attender: Patricia Kelly MD Physical Therapy 04/13 08:30:00 AM EDT [facility] ([facility]) Outpatient Attender: Domonique Aragon NP Family Practice 04/03 09:40:00 AM EDT [facility] Outpatient Attender: Domonique Aragon NP 04/03 09:32:00 AM EDT - 04/03/2021 09:32:00 AM EDT [facility] Outpatient Attender: Patricia Kelly MD Physical Therapy 03/19 12:45:00 PM EDT [facility] ([facility] ) Outpatient Attender: Rosa CELESTIN.JAYASHREE 12:00:00 AM EDT - 03/18/2021 02:47:08 PM EDT [facility] Outpatient Referrer: Patricia Kelly MD 2020 12:00:00 AM EDT - 03/04/2021 11:12:00 AM EDT Malignant neoplasm of thyroid gland [facility] Malignant neoplasm of thyroid gland Outpatient Referrer: Patricia Kelly MD 03/04/2021 12:00:00 [facility] Outpatient Referrer: Patricia Kelly MD 03/03/2021 02:1 5:00 PM EDT Malignant neoplasm of thyroid gland [facility] Malignant neoplasm of thyroid gland Office Visit Attender: CLEMENTINE SANTAMARIA NP Physical Therapy 10:00:00 AM EDT [facility] ([facility]) Outpatient Referrer: Patricia Kelly MD 03/03/2021 12:0 0:00 AM EDT Malignant neoplasm of thyroid gland [facility] Malignant neoplasm of thyroid gland Outpatient Referrer: Patricia Kelly MD 03/03/2021 12:0 0:00 AM EDT Malignant neoplasm of thyroid gland [facility] Malignant neoplasm of thyroid gland Outpatient Referrer: Patricia Kelly MD 03/03/2021 12:00:00 [facility] Outpatient Attender: CLEMENTINE SANTAMARIA NP Physical Therapy 10:00:00 AM EDT [facility] ([facility]) Outpatient Referrer: Patricia Kelly MD 03/02/2021 12:00:00 [facility] Outpatient Attender: Yulissa BARRAGAN 10/2020 10:35:00 AM EST - 11/18/2020 10:35:00 AM EST [facility] Outpatient Attender: Rosa HECKGEORGE-SJP.GEORGE 12:00:00 AM EST - 09/18/2020 09:41:21 AM EST [facility] Outpatient Attender: Patricia Kelly MD Physical Therapy 08/04 10:30:00 AM EST [facility] ([facility]) Outpatient Attender: Yulissa BARRAGAN 07/20 09:21:00 AM EST - 07/31/2020 09:21:00 AM EST [facility] Immunizations Vaccine Date Status Description Data Source(s) COVID-19 VACCINE Moderna 07/29/2021 12:00:00 AM EST completed [facility] Vaccine Series Complete: YESThis Data wa s Submitted to [facility] Via ObsEva[facility]. COVID-19 VACCINE, MRNA-1273, LNP-S (MODERNA)/PF 11/02/2020 1 2:00:00 AM EST completed [facility] COVID-19 VACCINE Moderna 11/02/2020 12:00:00 AM EST completed [facility] Vaccine Series Complete: YESThis Data wa s Submitted to [facility] Via evocatal. COVID-19 VACCINE, MRNA-1273, LNP-S (MODERNA)/PF 10/05/2020 1 2:00:00 AM EST completed [facility] COVID-19 VACCINE Moderna 10/05/2020 12:00:00 AM EST completed [facility] Vaccine Series Complete: NOThis Data was Submitted to [facility] Via evocatal. Medications Medication Brand Name Start Date Product Form Dose Route Admi nistrative Instructions Pharmacy Instructions Status Indications Reaction Description Data Source(s) Fluconazole 150 MG Oral Tablet Fluconazole 08/25/2021 12:00:00 AM EST ORAL active [facility] ([facility]) Fluconazole 100 MG Oral Tablet Fluconazole 08/25/2021 12:00:00 AM EST ORAL completed [facility] ([facility]) 175 mcg 08/03/2021 12:00:00 AM EST tablet 90 TAKE ONE TABLET BY MOUTH EVERY DAY TAKE ONE TABLET BY MOUTH EVERY DAY SOLD: 08/08/2021 [facility] 100 mcg/0.5 mL 07/29/2021 12:00:00 AM EST suspension 0 INJECT DIRECTED PER STANDING ORDER(3RD DOSE) INJECT DIRECTED PER STANDING ORDER(3RD DOSE) SOLD: 07/29/2021 [facility] 10 mg 07/27/2021 12:00:00 AM EST tablet 90 TAKE ONE TABLET BY MOUTH EVERY DAY TAKE ONE TABLET BY MOUTH EVERY DAY SOLD: 07/29/2021 [facility] 25 mg 07/07/2021 12:00:00 AM EDT tablet 90 TAKE ONE TABLET BY MOUTH EVERY DAY TAKE ONE TABLET BY MOUTH EVERY DAY SOLD: 07/15/2021 [facility] 5 mg 07/07/2021 12:00:00 AM EDT tablet 90 TAKE ONE TABLET BY MOUTH EVERY MORNING TAKE ONE TABLET BY MOUTH EVERY MORNING SOLD: 07/15/2021 [facility] 100 mg 07/07/2021 12:00:00 AM EDT tablet 90 TAKE ONE TABLET BY MOUTH EVERY DAY TAKE ONE TABLET BY MOUTH EVERY DAY SOLD: 07/15/2021 [facility] 60 mcg (15 mcg x 4)/0.5 mL 07/04/2021 12:00:00 AM EDT suspen chelsie 0 INJECT DIRECTED INJECT DIRECTED SOLD: 07/04/2021 [facility] 150 mg 06/30/2021 12:00:00 AM EDT tablet 1 TAKE ONE TABLET BY MOUTH A SINGLE ONE TIME DOSE TAKE ONE TABLET BY MOUTH A SINGLE ONE TIME DOSE CARMINE [facility] Fluconazole 150 MG Oral Tablet [Diflucan] Diflucan 06/30/2021 1 2:00:00 AM EDT ORAL completed [facility] ([facility]) 150 mg 06/30/2021 12:00:00 AM EDT tablet 1 TAKE ONE TABLET BY MOUTH A SINGLE ONE TIME DOSE TAKE ONE TABLET BY MOUTH A SINGLE ONE TIME DOSE CARMINE [facility] 1.479-0.188- 0.225 gram 05/27/2021 12:00:00 AM EDT tablet 24 TAKE DIRECTED BY DOCTOR FOR BOWEL PREP TAKE DIRECTED BY DOCTOR FOR BOWEL PREP SOLD: 06/06/2021 [facility] Bisacodyl 5 MG Delayed Release Oral Tablet [Dulcolax] Dulcol ax 05/26/2021 12:00:00 AM EDT ORAL active M [facility] ([facility], ) Sutab Sutab 05/26/2021 12:00:00 AM EDT active [facility] ([facility], ) empagliflozin 10 MG Oral Tablet [Jardiance] Jardiance 05/04/2021 12:00:00 AM EDT ORAL active [facility] ([facility]) 10 mg 05/04/2021 12:00:00 AM EDT tablet 90 TAKE ONE TABLET BY MOUTH DAILY TAKE ONE TABLET BY MOUTH DAILY SOLD: 05/04/2021 [facility] 175 mcg 05/02/2021 12:00:00 AM EDT tablet 30 TAKE ONE TABLET BY MOUTH EVERY DAY TAKE ONE TABLET BY MOUTH EVERY DAY SOLD: 05/02/2021 [facility] 175 mcg 05/02/2021 12:00:00 AM EDT tablet 30 TAKE ONE TABLET BY MOUTH EVERY DAY TAKE ONE TABLET BY MOUTH EVERY DAY SOLD: 07/10/2021 [facility] 175 mcg 05/02/2021 12:00:00 AM EDT tablet 30 TAKE ONE TABLET BY MOUTH EVERY DAY TAKE ONE TABLET BY MOUTH EVERY DAY SOLD: 06/10/2021 [facility] 25 mg 04/08/2021 12:00:00 AM EDT tablet 90 TAKE ONE TABLET BY MOUTH EVERY DAY TAKE ONE TABLET BY MOUTH EVERY DAY SOLD: 04/10/2021 [facility] 100 mg 04/08/2021 12:00:00 AM EDT tablet 90 TAKE ONE TABLET BY MOUTH EVERY DAY TAKE ONE TABLET BY MOUTH EVERY DAY SOLD: 04/10/2021 [facility] 5 mg 04/08/2021 12:00:00 AM EDT tablet 90 TAKE ONE TABLET BY MOUTH EVERY MORNING TAKE ONE TABLET BY MOUTH EVERY MORNING SOLD: 04/10/2021 [facility] 50 mg 04/08/2021 12:00:00 AM EDT tablet 90 TAKE ONE TABLET BY MOUTH EVERY DAY TAKE ONE TABLET BY MOUTH EVERY DAY SOLD: 04/10/2021 [facility] 5 mg 04/03/2021 12:00:00 AM EDT tablet 90 TAKE ONE TABLET BY MOUTH EVERY MORNING TAKE ONE TABLET BY MOUTH EVERY MORNING SOLD: 04/03/2021 [facility] dapagliflozin 5 MG Oral Tablet [Farxiga] Farxiga 04/03/2021 12:00: 00 AM EDT ORAL completed [facility] ([facility]) 10 mg 03/18/2021 12:00:00 AM EDT tablet 90 TAKE ONE TABLET BY MOUTH EVERY DAY TAKE ONE TABLET BY MOUTH EVERY DAY SOLD: 03/18/2021 [facility] ezetimibe 10 MG Oral Tablet ezetimibe (ZETIA) 10 MG ta blet ezetimibe (ZETIA) 10 MG tablet 03/18/2021 12:00:00 AM EDT 10 mg Oral act juan antonio Mixed hyperlipidemia Take 1 tablet (10 mg total) by mouth lulu jasmina [facility] Mixed hyperlipidemia 10 mg 03/18/2021 12:00:00 AM EDT tablet 90 TAKE ONE TABLET BY MOUTH EVERY DAY TAKE ONE TABLET BY MOUTH EVERY DAY SOLD: 06/10/2021 [facility] sodium iodide (I-123) capsule 1MCI [address]-7 03/03/2021 02:45:00 P M EDT Oral completed Oral, Once, On Tue03/03/21 at 1445, For 1 dose, Imaging [facility] Medication administered onsite Thyrogen Thyrogen 02/13/2021 12:00:00 AM EDT activ e [facility] ([facility]) 1 mg 02/10/2021 12:00:00 AM EDT tablet 1 TAKE ONE TABLET BY MOUTH 45 MINUTES BEFORE PROCEDURE. MUST HAVE SCHOOL ADMISSIONS REPRESENTATIVE, MAXIMUM DAILY DOSE = ONE TABLET TAKE ONE TABLET BY MOUTH 45 MINUTES BEFORE PROCEDURE. MUST HAVE SCHOOL ADMISSIONS REPRESENTATIVE, MAXIMUM DAILY DOSE = ONE TABLET SOLD: 02/10/2021 [facility] Alprazolam 1 MG Oral Tablet Alprazolam 02/10/2021 12:00:00 AM EDT ORAL active [facility] ([facility]) 175 mcg 01/29/2021 12:00:00 AM EDT tablet 90 TAKE ONE TABLET BY MOUTH EVERY DAY TAKE ONE TABLET BY MOUTH EVERY DAY SOLD: 01/31/2021 [facility] ezetimibe 10 MG Oral Tablet ezetimibe (ZETIA) 10 MG ta blet ezetimibe (ZETIA) 10 MG tablet 01/21/2021 12:00:00 AM EDT aborted Mixed hyperlipidemia TAKE ONE TABLET BY MOUTH EVERY DAY [facility] Mixed hyperlipidemia [facility] Verio 10/24/2020 12:00:00 AM EST act juan antonio [facility] ([facility]) 50 mg 10/20/2020 12:00:00 AM EST tablet 90 TAKE ONE TABLET BY MOUTH EVERY DAY TAKE ONE TABLET BY MOUTH EVERY DAY SOLD: 06/20/2021 [facility] 50 mg 10/20/2020 12:00:00 AM EST tablet 90 TAKE ONE TABLET BY MOUTH EVERY DAY TAKE ONE TABLET BY MOUTH EVERY DAY SOLD: 10/25/2020 [facility] Atenolol 50 MG Oral Tablet ATENOLOL 10/20/2020 12:00:00 AM EST tablet 90 TAKE ONE TABLET BY MOUTH EVERY DAY TAKE ONE TABLET BY MOUTH EVERY DAY SOLD: 01/17/2021 [facility] 100 mg 10/09/2020 12:00:00 AM EST tablet 90 TAKE ONE TABLET BY MOUTH EVERY DAY TAKE ONE TABLET BY MOUTH EVERY DAY SOLD: 01/17/2021 [facility] 25 mg 10/09/2020 12:00:00 AM EST tablet 90 TAKE ONE TABLET BY MOUTH EVERY DAY TAKE ONE TABLET BY MOUTH EVERY DAY SOLD: 01/17/2021 [facility] 100 mg 10/09/2020 12:00:00 AM EST tablet 90 TAKE ONE TABLET BY MOUTH EVERY DAY TAKE ONE TABLET BY MOUTH EVERY DAY SOLD: 10/11/2020 [facility] 25 mg 10/09/2020 12:00:00 AM EST tablet 90 TAKE ONE TABLET BY MOUTH EVERY DAY TAKE ONE TABLET BY MOUTH EVERY DAY SOLD: 10/11/2020 [facility] 10 mg 09/18/2020 12:00:00 AM EST tablet 90 TAKE ONE TABLET BY MOUTH EVERY DAY TAKE ONE TABLET BY MOUTH EVERY DAY SOLD: 12/17/2020 [facility] ezetimibe 10 MG Oral Tablet EZETIMIBE 09/18/2020 12:00:00 AM EST table t 90 TAKE ONE TABLET BY MOUTH EVERY DAY TAKE ONE TABLET BY MOUTH EVERY DAY SOLD: 09/18/2020 [facility] ezetimibe 10 MG Oral Tablet ezetimibe (ZETIA) 10 MG ta blet ezetimibe (ZETIA) 10 MG tablet 09/18/2020 12:00:00 AM EST 10 mg Oral act juan antonio Mixed hyperlipidemia Take 1 tablet (10 mg total) by mouth lulu jasmina [facility] Mixed hyperlipidemia ezetimibe 10 MG Oral Tablet Ezetimibe 09/18/2020 12:00:00 AM EST ORAL active [facility] ([facility]) 175 mcg 08/05/2020 12:00:00 AM EST tablet 90 TAKE ONE TABLET BY MOUTH EVERY DAY TAKE ONE TABLET BY MOUTH EVERY DAY SOLD: 11/08/2020 [facility] 175 mcg 08/05/2020 12:00:00 AM EST tablet 90 TAKE ONE TABLET BY MOUTH EVERY DAY TAKE ONE TABLET BY MOUTH EVERY DAY SOLD: 08/09/2020 [facility] Linagliptin 5 MG Oral Tablet [Tradjenta] TRADJENTA 5 M G TABS TRADJENTA 5 MG TABS 07/24/2020 12:00:00 AM EST 5 mg Oral active Take 5 mg by mouth [facility] 5 mg 07/24/2020 12:00:00 AM EST tablet 90 TAKE ONE TABLET BY MOUTH EVERY MORNING TAKE ONE TABLET BY MOUTH EVERY MORNING SOLD: 01/17/2021 [facility] 5 mg 07/24/2020 12:00:00 AM EST tablet 90 TAKE ONE TABLET BY MOUTH EVERY MORNING TAKE ONE TABLET BY MOUTH EVERY MORNING SOLD: 10/18/2020 [facility] 175 mcg 06/07/2020 12:00:00 AM EDT tablet 30 TAKE ONE TABLET BY MOUTH EVERY DAY TAKE ONE TABLET BY MOUTH EVERY DAY SOLD: 07/12/2020 [facility] Meclizine Hydrochloride 25 MG Oral Tablet meclizine (A NTIVERT) 25 MG tablet meclizine (ANTIVERT) 25 MG tablet 25 mg Oral abor jie Take 25 mg by mouth 3 (three) times a day as needed for dizziness [facility] Insurance Providers Payer name Policy type / Coverage type Policy ID Covered democrat ID Covered democrat's relationship to franklin Policy [place] Plan Information EXCELLUS BCBS [id number] xxxxxxxxxxxx [id number] EXCELLUS [facility] [id number] [facility] YLS [id number] EMPIRE PLAN [facility] U [id number] Self [id number] BCBS EMPIRE PATI DIV [id number] SP [id number] EMPIRE ([facility]) O [id number] S [id number] [facility] [id number] SP [id number] SELF PAY ONLY [id number] SP [id number] [facility] O [id number] S [id number] Private Pay Commercial [id number] Self [id number] Private Pay Commercial [id number] Self [id number] Private Pay Commercial [id number] Self [id number] SELF PAY SP Private Pay Commercial [id number] Self [id number] [facility] [id number] SP [id number] Cancer Services Program Commercial [id number] Self [id number] CANCER SERVICE PROGRAM-C [id number] S [id number] CANCER SERVICE PROGRAM-C O [id number] S [id number] CANCER SERVICE PROGRAM-C P UNAVAILABLE [id number] S UNAVAILABLE [facility] [id number] SP [id number] [facility] [id number] SP [id number] [facility] [id number] Problems, Conditions, and Diagnoses Code Display Name Description Problem Type Effective Dates Data Source(s) R59.9 Enlarged lymph nodes, unspecified Enlarged lymph nodes, unspecified Diagnosis 05/14/2021 10:14:00 AM EDT [facility] I10 Essential (primary) hypertension Essential (primary) h ypertension Diagnosis 03/18/2021 01:17:17 PM EDT [facility] R00.2 Palpitations Palpitations Diagnosis 03/18/2021 01:17:17 P M EDT [facility] C73 Malignant neoplasm of thyroid gland Malignant ne oplasm of thyroid gland Diagnosis 03/18/2021 01:17:17 PM EDT [facility] E11.9 Type 2 diabetes mellitus without complic ations Type 2 diabetes mellitus without complic Diagnosis 03/18/2021 01:17:17 PM EDT [facility] E78.2 Mixed hyperlipidemia Mixed hyperlipidemia Diagnosis 03/18/2021 01:17:17 PM EDT [facility] R53.83 Other fatigue Other fatigue Diagnosis 03/18/2021 01:17:17 PM EDT [facility] C73 Malignant neoplasm of thyroid gland Malignant ne oplasm of thyroid gland Diagnosis 03/04/2021 10:00:00 AM EDT [facility] [id number] Other intermediate manager (current) drug therapy O ther intermediate manager (current) drug therapy Diagnosis 07/31/2020 09:21:00 AM [facility] R590 Localized enlarged lymph nodes Localized enlarged lymp h nodes Diagnosis 07/31/2020 09:21:00 AM [facility] K1120 Sialoadenitis, unspecified Sialoadenitis, unspecified Diagnosis 07/31/2020 09:21:00 AM [facility] N951 Menopausal and female climacteric states Menopausal and female climacteric states Diagnosis 07/31/2020 09:21:00 AM [facility] C73 Malignant neoplasm of thyroid gland Malignant ne oplasm of thyroid gland Diagnosis 07/31/2020 09:21:00 AM [facility] E782 Mixed hyperlipidemia Mixed hyperlipidemia Diagnosis 07/31/2020 09:21:00 AM [facility] I10 Essential (primary) hypertension Essential (primary) h ypertension Diagnosis 07/31/2020 09:21:00 AM [facility] E1165 Type 2 diabetes mellitus with hyperglyce makayla Type 2 diabetes mellitus with hyperglycemia Diagnosis 07/31/2020 09:21:00 AM [facility] E039 Hypothyroidism, unspecified Hypothyroidism, unspecifie d Diagnosis 07/31/2020 09:21:00 AM [facility] R53.83 Other fatigue Other fatigue [id number] 03/18/2021 12:00:00 AM EDT [facility] D49.3 Neoplasm of breast Neoplasm of breast Problem 0 12:00:00 AM EST [facility] ([facility]) H81.13 Benign paroxysmal positional vertigo Zana ign paroxysmal positional vertigo Problem 07/31/2020 12:00:00 AM EST [facility] ([facility]) N92.0 Excessive and frequent menstruation Excessive an d frequent menstruation Problem 07/31/2020 12:00:00 AM EST [facility] ([facility]) E04.2 Non-toxic multinodular goiter Non-toxic multinodular g oiter Problem 07/31/2020 12:00:00 AM EST [facility] ([facility]) Z79.899 Taking medication Taking medication Problem 07/31/2020 12:00:00 AM EST [facility] ([facility]) R01.1 Heart murmur Heart murmur Problem 07/31/2020 12:00:00 A M EST [facility] ([facility]) D64.9 Anemia Anemia Problem 07/31/2020 12:00:00 AM ES T [facility] ([facility]) C73 Malignant tumor of thyroid gland Malignant tumor of th yroid gland Problem 07/31/2020 12:00:00 AM EST [facility] ([facility]) R00.2 Palpitations Palpitations Problem 07/31/2020 12:00:00 A M EST [facility] ([facility]) E78.2 Mixed hyperlipidemia Mixed hyperlipidemia Problem 07/31/2020 12:00:00 AM EST [facility] ([facility]) I10 Essential hypertension Essential hypertension Problem 07/31/2020 12:00:00 AM EST [facility] ([facility]) E11.65 Type II diabetes mellitus uncontrolled T ype II diabetes mellitus uncontrolled Problem 07/31/2020 12:00:00 AM EST [facility] ([facility]) E03.9 Hypothyroidism Hypothyroidism Problem 07/31/2020 12:00: 00 AM EST [facility] ([facility]) Surgeries/Procedures Procedure Description Date Indications Data Source(s) OFFICE OUTPATIENT VISIT 25 MINUTES 07/06/2021 12:00:00 AM EDT [facility] ([facility]) OFFICE OUTPATIENT VISIT 25 MINUTES 06/08/2021 12:00:00 AM EDT [facility] ([facility] OFFICE OUTPATIENT VISIT 25 MINUTES 04/13/2021 12:00:00 AM EDT [facility] ([facility] OFFICE OUTPATIENT VISIT 25 MINUTES 04/03/2021 12:00:00 AM EDT [facility] ([facility]) OFFICE OUTPATIENT VISIT 25 MINUTES 03/19/2021 12:00:00 AM EDT [facility] ([facility]) LAB RESULTS (OUTSIDE/HISTORICAL) <td>LAB RESULTS (OUTSIDE/HISTORICAL)</td><td></td><td>03/10/2021 2:24 PM EDT</td><td></td><td></td> 03/10/2021 02:24:50 PM EDT [facility] XR CHEST FRONTAL AND LATERAL 09727 <td>XR CHEST FRONTA L AND LATERAL 43539</td><td>Routine</td><td>03/04/2021 11:19 AM EDT</td><td></td><td></td> 03/04/2021 11:19:00 AM EDT [facility] THERAPEUTIC PROPHYLACTIC/DX INJECTION SUBQ/IM <td>NM I M INJECTION THYROGEN 89133</td><td>Routine</td><td>03/04/2021 11:07 AM EDT</td><td> Thyroid cancer</td><td> </td> 03/04/2021 11:07:37 AM EDT Thyroid cancer [facility] Thyroid cancer THERAPEUTIC PROPHYLACTIC/DX INJECTION SUBQ/IM 03/03/20 21 12:00:00 AM EDT [facility] ([facility]) THERAPEUTIC PROPHYLACTIC/DX INJECTION SUBQ/IM 03/02/20 21 12:00:00 AM EDT [facility] ([facility]) OFFICE OUTPATIENT VISIT 25 MINUTES 03/02/2021 12:00:00 AM EDT [facility] ([facility]) OFFICE OUTPATIENT VISIT 15 MINUTES 03/02/2021 12:00:00 AM EDT [facility] ([facility]) Mammography (procedure) 12/22/2020 12:00:00 AM EDT [facility] ([facility]) Brief Emotional/Behav Assessment W/ Scoring Doc Per Standard Inst 11/18/2020 12:00:00 AM EST [facility] ([facility]) PERIODIC PREVENTIVE MED EST PATIENT 40-64YRS 12:00:00 AM EST [facility] ([facility]) Brief Emotional/Behav Assessment W/ Scoring Doc Per Standard Inst 11/04/2020 12:00:00 AM EST [facility] ([facility]) BLOOD COUNT COMPLETE AUTO&AUTO DIFRNTL WBC COUNT <td>C BC AND DIFFERENTIAL</td><td>Routine</td><td>10/23/2020</td><td></td><td> </td> 10/23/2020 12:00:00 AM EST [facility] HEMOGLOBIN GLYCOSYLATED A1C <td>HEMOGLOBIN A1C</td><td>Routine</td><td>10/23/2020</td><td></td><td> </td> 10/23/2020 12:00:00 AM EST [facility] HEPATIC FUNCTION PANEL <td>HEPATIC FUNCTION PANEL</td><td>Routine</td><td>10/23/2020</td><td></td><td> </td> 10/23/2020 12:00:00 AM EST [facility] LIPID PANEL <td>LIPID PANEL</td><td>Rout ine</td><td>10/23/2020</td><td></td><td> </td> 10/23/2020 12:00:00 AM EST [facility] BASIC METABOLIC PANEL CALCIUM TOTAL <td>BASIC METABOLI C PANEL</td><td>Routine</td><td>10/23/2020</td><td></td><td> </td> 10/23/2020 12:00:00 AM EST [facility] POCT AMB EKG <td>POCT AMB EKG</td><td>Rou mikey</td><td>09/18/2020 9:27 AM EST</td><td> Palpitations</td><td> </td> 09/18/2020 02:27:00 PM EST Palpitations [facility] Palpitations BLOOD COUNT COMPLETE AUTO&AUTO DIFRNTL WBC COUNT <td>C BC AND DIFFERENTIAL</td><td>Routine</td><td>07/22/2020</td><td></td><td> </td> 07/22/2020 12:00:00 AM EST [facility] THYROID STIMULATING HORMONE TSH <td>TSH</td><td>Routine</td><td>07/22/2020</td><td></td><td> </td> 07/22/2020 12:00:00 AM EST [facility] HEMOGLOBIN GLYCOSYLATED A1C <td>HEMOGLOBIN A1C</td><td>Routine</td><td>07/22/2020</td><td></td><td> </td> 07/22/2020 12:00:00 AM EST [facility] HEPATIC FUNCTION PANEL <td>HEPATIC FUNCTION PANEL</td><td>Routine</td><td>07/22/2020</td><td></td><td> </td> 07/22/2020 12:00:00 AM EST [facility] LIPID PANEL <td>LIPID PANEL</td><td>Rout ine</td><td>07/22/2020</td><td></td><td> </td> 07/22/2020 12:00:00 AM EST [facility] BASIC METABOLIC PANEL CALCIUM TOTAL <td>BASIC METABOLI C PANEL</td><td>Routine</td><td>07/22/2020</td><td></td><td> </td> 07/22/2020 12:00:00 AM EST [facility] Results ID Date Data Source [id number] 08/24/2021 09:00:00 AM EST [facility] Name Value Range Interpretation Code Description Data Jazmine rce(s) Supporting Document(s) SARS-CoV-2 (COVID-19) RNA [Presence] in Respiratory specimen by [facility]ICO with probe detection Not Detected [facility] This lab was ordered by [facility] and reported by [employer] [facility] [employer] [facility] [employer] ID Date Data Source [id number] 08/24/2021 09:00:00 AM EST [facility] ([facility]) Name Value Range Interpretation Code Description Data Jazmine rce(s) Supporting Document(s) Laboratory test finding (navigational concept) Laboratory test result [facility] ([facility]) ASSAY INFORMATION: Real Time RT-PCR NOTE: The COVID-19 assay has been cleared by the U.S. Food and Drug Administration under the Emergency Use Authorization (EUA). [facility] and [facility] are designated as high complexity laboratories by the Clinical Laboratory Improvement Amendments of 1988(CLIA) and are qualified to perform this test. Not Detected ID Date Data Source [id number] 05/14/2021 09:33:00 AM EDT [facility] ([facility]) Name Value Range Interpretation Code Description Data Jazmine rce(s) Supporting Document(s) Microscopic observation [Identifier] in Unspecified specimen by Non- gynecological cytology method Laboratory test result [facility] ([facility]) SPECIMEN: FNA right neck mass Specimen received in cytolyt-clear, RPMI SPECIMEN ADEQUACY: Satisfactory for evaluation CATEGORIZATION: Atypical [...] additional material for evaluation. See RELL report [id number] scanned in EMR pathology. 05/19/2021 - 728 Signed ELIZABETH PACK (ASCP) 05/15/2021 0834 (Prelim) Signed Brandee Amato MD 05/19/2021 0730 ID Date Data Source [id number] 05/18/2021 12:38:00 PM T [facility] Hematopathology ReportName: LIV PAULAMRN: [id number] Number: [id number] Date: 05/14/2021 00:00Received Date: 05/15/2021 15:09Physician(s): BRANDEE AMATO MD HAGHIR, SHAHANDEH [place] [place]) ReceivedA: Fine Needle Aspiration, Flow Cytometry; received FNA of right neck inRPMIClinical HistoryLymphadenopathyTEST REQUESTED/PERFORMED: Flow Cytometry Analysis DiagnosisFlow cytometry of right submandibular lymph node, FNA: Dilute sample withno evidence of non-Hodgkin lymphoma. A repeat study could be useful ifclinically indicated.Sree Almonte M.D.;Resident PathologistElectronically Signed By Lorin Hunt M.D. Attending Pathologist 05/18/2021 12:38:28The attending pathologist named above attests that he/she has personallyreviewed the relevant preparation(s) for the specimen(s) and rendered thefinal diagnosis. ProceduresFlow Cytometry Date Ordered:05/15/2021 Status: Signed Out05/18/2021 InterpretationA cytospin shows scattered RBCs and cellular debris.Lymphoma Industry Panel The following markers were assayed: CD45 (gate), CD2, CD3, CD4, CD5, CD7,CD8, CD10, CD19, CD20, [place], and Lambda.Events : 81NOTE: Routinely a minimum of 50,000 events are collected in each paneltube. Due to sample cellularity and/or processing this number was notachievable for this sample.Viability: No viability performed due to low cellularity.Flow Cytome try Differential (CD45/SSC)Lymphocyte [place]: 21%CD45 dim [place]: 0%Monocyte [place]: 0%Granulocyte [place]: 0%Nucleated/Erythroid [place]: 5%The lymphocyte gate showsB- Cells (CD19): 0%Olean/Lambda Ratio: N/AT-Cells (CD3): 100%CD4/CD8 Ratio: 4.4Results: (expressed as % of lymphocyte gate)B-cell Markers: CD19 = 0, CD19/CD5 = 0Gated on CD19+ cells: CD19/Olean = 0, CD19/Lambda = 0, CD19/CD10 = 0,CD19/CD20 = 0T-cell Markers: CD3 = 100, CD5 = 100Gated on CD3+ cells: CD3/CD2 = 100, CD3/CD4 = 68, CD3/CD8 = 16, CD3/CD7 =100Results-CommentsThis is a dilute sample with scant cellularity. Lymphocytes consist of Tcells with normal expression of leahy T-cell markers and an increasedCD4/CD8 ratio.Procedure Electronically Signed By:Lorin Hunt M.D.05/18/2021 This report may include one or more immunohistochemical stain/fluorochromeconjugated monoclonal antibody results that use analyte specific reagents.All positive and negative controls have been reviewed by the attendingpathologist and are satisfactory. The tests were developed and theirperformance characteristics determined by [facility] Pathology department.They have not been cleared or approved by the [place] Food and DrugAdministration. The FDA has determined that such clearance or approval isnot necessary. Name Value Range Interpretation Code Description Data Jazmine rce(s) Supporting Document(s) ID Date Data Source [id number] 03/09/2021 03:19:06 PM EDT [facility] [place] THYROID METS SEARCH WHOLE BODY [id number] DITED RESULT - FINALInterpreted by:Moises Mullins MDAddendum BeginsSigned on TueMar 09, 2021 3:17 PM by Krissy Elam MDThe thyroglobulin antibody levels measure < 1.0 Iu/mL. The thyroglobulin level measures 2.3 ng/mL . Previously, the thyroglobulin levels measured 0.2 ng/mL. Close short-term laboratory follow up with serial thyroglobulin levels as well as neck ultrasound is recommended. If the trend continues to rise, the patient may require additional imaging workup.Addendum EndsINDICATION: History of thyroid cancer.TECHNIQUE: Whole body planar and pinhole images of the neck were obtained one day following the oral dose of 1925 uCi of I-123.COMPARISON: Thyroid uptake scan 02/04/2020FINDINGS: Expected soft tissue, intestinal, salivary, and bladder activity is noted. There is a subtle focus of increased radiopharmaceutical uptake within the thyroid bed which is likely artifactual, however the presence of recurrent tissue or disease is not excluded. There is no evidence of distant metastatic disease. Thyroglobulin and thyroglobulin antibody levels are not available at this time. IMPRESSION: Subtle focus of increased radiopharmaceutical uptake in the low thyroid bed which is likely artifactual, however, the presence of recurrent tissue or disease is not excluded. Further recommendations will be provided once thyroglobulin and thyroglobulin antibody levels are available.This document has been electronically signed by Krissy Elam MD on 03/04/2021 3:27 PM Name Value Range Interpretation Code Description Data Jazmine rce(s) Supporting Document(s) ID Date Data Source [id number] 03/09/2021 03:19:06 PM EDT [facility] [place] THYROID METS UPTAKE [id number] RESUL T - FINALInterpreted by:Moises Mullins MDAddendum BeginsSigned on TueMar 09, 2021 3:17 PM by Krissy Elam MDThe thyroglobulin antibody levels measure < 1.0 Iu/mL. The thyroglobulin level measures 2.3 ng/mL . Previously, the thyroglobulin levels measured 0.2 ng/mL. Close short-term laboratory follow up with serial thyroglobulin levels as well as neck ultrasound is recommended. If the trend continues to rise, the patient may require additional imaging workup.Addendum EndsINDICATION: History of thyroid cancer.TECHNIQUE: Whole body planar and pinhole images of the neck were obtained one day following the oral dose of 1925 uCi of I-123.COMPARISON: Thyroid uptake scan 02/04/2020FINDINGS: Expected soft tissue, intestinal, salivary, and bladder activity is noted. There is a subtle focus of increased radiopharmaceutical uptake within the thyroid bed which is likely artifactual, however the presence of recurrent tissue or disease is not e xcluded. There is no evidence of distant metastatic disease. Thyroglobulin and thyroglobulin antibody levels are not available at this time. IMPRESSION: Subtle focus of increased radiopharmaceutical uptake in the low thyroid bed which is likely artifactual, however, the presence of recurrent tissue or disease is not excluded. Further recommendations will be provided once thyroglobulin and thyroglobulin antibody levels are available.This document has been electronically signed by Krisys Elam MD on 03/04/2021 3:27 PM Name Value Range Interpretation Code Description Data Jazmine rce(s) Supporting Document(s) ID Date Data Source [id number] 03/05/2021 02:42:14 PM EDT [facility] XR CHEST FRONTAL AND LATERAL [id number] RESULTInterpreted by:Maximino Garcia MDINDICATION: 50-year-old female with history of thyroid cancer.TECHNIQUE: Upright frontal and lateral view of chest were obtained.COMPARISON: None.FINDINGS: Scattered degenerative changes are present in the visualized thoracic spine.The mediastinal contours are normal.There is no evidence of pleural disease.The lungs are clear.IMPRESSION: No acute disease of the chest.This document has been electronically signed by Isai Johns MD on 03/05/2021 2:40 PM Name Value Range Interpretation Code Description Data Jazmine rce(s) Supporting Document(s) ID Date Data Source [id number] 03/04/2021 03:17:54 PM EDT [facility] [place] IM INJECTION THYROGEN [id number] RESU LTInterpreted by:Moises Mullins MDCLINICAL INDICATION: History of thyroid cancer.FINDINGS/IMPRESSION:The patient was injected with 0.9 mg Thyrogen on 03/04/2021 with no immediate complications. This document has been electronically signed by Krissy Elam MD on 03/04/2021 3:15 PM Name Value Range Interpretation Code Description Data Jazmine rce(s) Supporting Document(s) Procedure Social History Code Duration Value Status Description Data Source(s ) Smoking 06/08/2021 12:00:00 AM EDT Patient has never smoked co mpleted Patient has never smoked [facility] ([facility] ) Alcohol intake 09/18/2020 12:00:00 AM EST Ex-drinker (finding) comp leted Ex- drinker (finding) [facility] Smoking 09/18/2020 12:00:00 AM EST Never smoker completed Never s moker [facility] Vital Signs ID Date Data Source UNK Name Value Range Interpretation Code Description Data Source(s) Body weight 182.50 [lb_av] 182.50 [lb_av] [facility] T ([facility]) Body height 65 [in_i] 65 [in_i] [facility] ([facility]) 5'5" Body mass index (BMI) [Ratio] 30.4 kg/m2 30.4 k g/m2 [facility] ([facility]) Body surface area Derived from formula 1.90 m2 1.90 m2 [facility] ([facility]) Body weight 82.782 kg 82.782 kg [facility] ([facility]) Systolic blood pressure 148 mm[Hg] 148 mm[Hg] M EDENT ([facility]) Diastolic blood pressure 82 mm[Hg] 82 mm[Hg] [facility] ([facility]) Heart rate 57 /min 57 /min [facility] ([facility]) Body temperature 97.3 [degF] 97.3 [degF] [facility] ([facility]) Respiratory [facility] 16 /min 16 /min [facility] Oxygen saturation in Arterial blood by Pulse oximetry 98 % 98 % [facility] ([facility]) Oxygen saturation in Arterial blood by Pulse oximetry 98 % 98 % [facility] ([facility]) Systolic blood pressure 114 mm[Hg] 114 mm[Hg] M [facility] ([facility]) Diastolic blood pressure 70 mm[Hg] 70 mm[Hg] [facility] ([facility]) Heart rate 66 /min 66 /min [facility] ([facility]) Body height 65 [in_i] 65 [in_i] [facility] ([facility]) 5'5" Body weight 184.50 [lb_av] 184.50 [lb_av] [facility] T ([facility]) Body mass index (BMI) [Ratio] 30.7 kg/m2 30.7 k g/m2 [facility] ([facility]) Body weight 189.00 [lb_av] 189.00 [lb_av] [facility] T ([facility], ) Body mass index (BMI) [Ratio] 32.4 kg/m2 32.4 k g/m2 [facility] [place] body weight 120 [lb_av] 120 [lb_av] [facility] T ([facility], ) Body weight 85.730 kg 85.730 kg [facility] ([facility], ) Body surface area Derived from formula 1.91 m2 1.91 m2 [facility] ([facility], ) Systolic blood pressure 124 mm[Hg] 124 mm[Hg] M EDENT ([facility], ) Diastolic blood pressure 80 mm[Hg] 80 mm[Hg] [facility] ([facility], ) Body height 64 [in_i] 64 [in_i] [facility] ([facility], ) 5'4" Diastolic blood pressure 70 mm[Hg] 70 mm[Hg] [facility] ([facility] ) Heart rate 53 /min 53 /min [facility] ([facility]) Body height 65 [in_i] 65 [in_i] [facility] ([facility]) 5'5" Body mass index (BMI) [Ratio] 32.1 kg/m2 32.1 k g/m2 [facility] ([facility]) Oxygen saturation in Arterial blood by Pulse oximetry 98 % 98 % [facility] ([facility]) Body weight 193.12 [lb_av] 193.12 [lb_av] [facility] T ([facility]) Systolic blood pressure 122 mm[Hg] 122 mm[Hg] M EDENT ([facility]) Systolic blood pressure 148 mm[Hg] 148 mm[Hg] M [facility] ([facility]) Heart rate 78 /min 78 /min [facility] ([facility]) Respiratory rate 16 /min 16 /min [facility] ( [facility]) Oxygen saturation in Arterial blood by Pulse oximetry 99 % 99 % [facility] ([facility]) Body weight 197.12 [lb_av] 197.12 [lb_av] [facility] T ([facility]) Body weight 89.416 kg 89.416 kg [facility] ([facility]) Body height 65 [in_i] 65 [in_i] [facility] ([facility]) 5'5" Body mass index (BMI) [Ratio] 32.8 kg/m2 32.8 k g/m2 [facility] ([facility]) Body surface area Derived from formula 1.97 m2 1.97 m2 [facility] ([facility]) Diastolic blood pressure 86 mm[Hg] 86 mm[Hg] [facility] ([facility]) Body temperature 97.5 [degF] 97.5 [degF] [facility] ([facility] ) Systolic blood pressure 132 mm[Hg] 132 mm[Hg] [facility] Heart rate 60 /min 60 /min [facility] Body height 162.6 cm 162.6 cm [facility] Body weight 89.359 kg 89.359 kg [facility] Body mass index (BMI) [Ratio] 33.81 kg/m2 33.81 kg/m2 [facility] Diastolic blood pressure 80 mm[Hg] 80 mm[Hg] [facility] Oxygen saturation in Arterial blood by Pulse oximetry 97 % 97 % [facility] Diastolic blood pressure 80 mm[Hg] 80 mm[Hg] [facility] ([facility]) Heart rate 60 /min 60 /min [facility] ([facility] ) Body temperature 96.9 [degF] 96.9 [degF] [facility] ([facility] ) Body height 65 [in_i] 65 [in_i] [facility] ([facility] ) 5'5" Body weight 191.12 [lb_av] 191.12 [lb_av] [facility] T ([facility] ) Body mass index (BMI) [Ratio] 31.8 kg/m2 31.8 k g/m2 [facility] Systolic blood pressure 124 mm[Hg] 124 mm[Hg] M [facility] ([facility] ) Diastolic blood pressure 80 mm[Hg] 80 mm[Hg] [facility] ([facility]) Systolic blood pressure 126 mm[Hg] 126 mm[Hg] M [facility] ([facility]) Heart rate 62 /min 62 /min [facility] ([facility]) Respiratory rate 18 /min 18 /min [facility] ( [facility]) Oxygen saturation in Arterial blood by Pulse oximetry 98 % 98 % [facility] ([facility]) Body temperature 97.2 [degF] 97.2 [degF] [facility] ([facility]) Body weight 198.38 [lb_av] 198.38 [lb_av] [facility] T ([facility]) Body height 65 [in_i] 65 [in_i] [facility] ([facility]) 5'5" Body weight 89.983 kg 89.983 kg [facility] ([facility]) Body mass index (BMI) [Ratio] 33.0 kg/m2 33.0 k g/m2 [facility] ([facility]) Body surface area Derived from formula 1.97 m2 1.97 m2 [facility] ([facility]) Systolic blood pressure 140 mm[Hg] 140 mm[Hg] [facility] Diastolic blood pressure 80 mm[Hg] 80 mm[Hg] [facility] Heart rate 61 /min 61 /min [facility] Body height 162.6 cm 162.6 cm [facility] Body weight 90.266 kg 90.266 kg [facility] Body mass index (BMI) [Ratio] 34.16 kg/m2 34.16 kg/m2 [facility] Oxygen saturation in Arterial blood by Pulse oximetry 98 % 98 % [facility] Body temperature 97.1 [degF] 97.1 [degF] [facility] ([facility] ) Body height 65 [in_i] 65 [in_i] [facility] ([facility] ) 5'5" Systolic blood pressure 126 mm[Hg] 126 mm[Hg] M [facility] ([facility] ) Diastolic blood pressure 74 mm[Hg] 74 mm[Hg] [facility] ([facility] ) Heart rate 64 /min 64 /min [facility] ([facility] ) Body weight 195.25 [lb_av] 195.25 [lb_av] [facility] T ([facility] ) Body mass index (BMI) [Ratio] 32.5 kg/m2 32.5 k g/m2 [facility] Oxygen saturation in Arterial blood by Pulse oximetry 98 % 98 % [facility] ([facility] ) Systolic blood pressure 132 mm[Hg] 132 mm[Hg] M [facility] ([facility]) Diastolic blood pressure 82 mm[Hg] 82 mm[Hg] [facility] Heart rate 68 /min 68 /min [facility] ([facility]) Body temperature 97.3 [degF] 97.3 [degF] [facility] ([facility]) Respiratory rate 18 /min 18 /min [facility] Oxygen saturation in Arterial blood by Pulse oximetry 98 % 98 % [facility] Body weight 195.50 [lb_av] 195.50 [lb_av] [facility] T ([facility]) Body weight 88.679 kg 88.679 kg [facility] ([facility]) Body height 65 [in_i] 65 [in_i] [facility] 5'5" Body mass index (BMI) [Ratio] 32.5 kg/m2 32.5 k g/m2 [facility] ([facility]) Body surface area Derived from formula 1.96 m2 1.96 m2 [facility] ([facility]) Patient Treatment Plan of Care Planned Activity Planned Date Details Description Data Source (s) ezetimibe 10 MG Oral Tablet 03/18/2021 12:00:00 AM EDT [facility] ezetimibe 10 MG Oral Tablet 01/21/2021 12:00:00 AM EDT [facility] ezetimibe 10 MG Oral Tablet 09/18/2020 12:00:00 AM EST [facility] Linagliptin 5 MG Oral Tablet [Tradjenta] 07/24/2020 12:00:00 AM EST [facility] Meclizine Hydrochloride 25 MG Oral Tablet [facility]
[2021-08-28] MEDS ORDERED: NS 1,000 ML IV ONE (09:00)
[2021-08-28] MEDS ORDERED: propofoL 200 MG/20 ML VIAL As Ordered ONE ×2 (09:16→10:06)
[2021-08-28] MEDS ORDERED: LIDOCAINE 2% 100MG/5ML SDV (FOR ANES.) As Ordered ONE (09:16)
--- NOTE | 2021-08-28 10:09 | ROOR ---
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 Procedure: Pre-Anesthesia Assessment: - The heart rate, respiratory rate, oxygen saturations, blood pressure, adequacy of pulmonary ventilation, and response to care were monitored throughout the procedure. The Colonoscope was introduced through the anus and advanced to the terminal ileum, with identification of the appendiceal orifice and IC valve. The colonoscopy was performed without difficulty. The patient tolerated the procedure well. The quality of the bowel preparation was good. Findings: Skin tags were found on perianal exam. A diminutive polyp was found in the distal rectum/anorectal junction. The polyp was semi-sessile. The polyp was removed with a cold snare. Resection and retrieval were complete. Three sessile polyps were found in the sigmoid colon. The polyps were diminutive in size. These polyps were removed with a cold snare. Resection and retrieval were complete. The exam was otherwise without abnormality on direct and retroflexion views. Impression: - Perianal skin tags found on perianal exam. - One diminutive polyp in the rectum, removed with a cold snare. Resected and retrieved. - Three diminutive polyps in the sigmoid colon, removed with a cold snare. Resected and retrieved. - The examination was otherwise normal on direct and retroflexion views. Recommendation: - Repeat colonoscopy in 3 years. Procedure Code(s): --- Professional --- 76445, Colonoscopy, flexible; with removal of tumor(s), polyp(s), or other lesion(s) by snare technique Diagnosis Code(s): --- Professional --- Z86.010, Personal history of colonic polyps K62.1, Rectal polyp K63.5, Polyp of colon K64.4, Residual hemorrhoidal skin tags Z83.71, Family history of colonic polyps CPT copyright 2019 [employer]. All rights reserved. The codes documented in this report are preliminary and upon event marketing representative review may be revised to meet current compliance requirements. Gio Johnson MD Gio Johnson MD 08/28/2021 10:09:12 AM Electronically signed by Gio Johnson MD Number of Addenda: 0 Note Initiated On: 08/28/2021 9:35 AM Estimated Blood Loss: Estimated blood loss: none.
[2021-08-28 10:25] VITALS: BP 156/79
== END 2021-08-28 10:37 | disposition home or self-care (01) ==
LOC: M OPP 08:19
PROVIDERS: ATTEND Internal Medicine Gastroenterology
DX: Z12.11 Encounter for screening for malignant neoplasm of colon (principal); Z86.010 Personal history of colon polyps; Z83.71 Family history of colonic polyps; K63.5 Polyp of colon; K62.1 Rectal polyp; K64.4 Residual hemorrhoidal skin tags; Z79.82 Long term (current) use of aspirin; Z79.84 Long term (current) use of oral hypoglycemic drugs; Z79.899 Other long term (current) drug therapy; Z85.850 Personal history of malignant neoplasm of thyroid; Z80.49 Family history of malignant neoplasm of other genital organs; Z80.6 Family history of leukemia

== ENCOUNTER → 2021-10-30 | Outpatient (CLI) | payer BC, OTHER ==
[~2021-10-30] MED LIST changes: -EZET10TA21; +EZET10TA21 PO; +FLUC150T9 PO; -HYDR-3490; +HYDR-3490 PO; -JARD1TAB; +JARD1TAB PO; -LEVO175T2; +LEVO175T2 PO; +LOSA100T45 PO; -LOSA100T50; -TRAD5TAB; +TRAD5TAB PO
== END ==
LOC: M LABSMTC 10:45
PROVIDERS: ATTEND Anesthesiology
DX: Z01.812 Encounter for preprocedural laboratory examination (principal); Z20.822 Contact with and (suspected) exposure to COVID-19

== ENCOUNTER 2021-11-04 11:53 | Day surgery (SDC) | payer BC, OTHER ==
[~2021-11-04] VITALS: Ht 162.6 cm; Wt 80.7 kg
[2021-11-04] MEDS ORDERED: LR 1,000 ML IV ONE (13:20)
[2021-11-04] MEDS ORDERED: ACETAMINOPHEN 1000MG 100ML IV BTL (OFIRMEV) (J0131 PER 10MG) As Ordered ONE (13:47)
[2021-11-04] MEDS ORDERED: ONDANSETRON 4MG/2ML VIAL As Ordered ONE ×2 (13:47→13:53)
[2021-11-04] MEDS ORDERED: propofoL 200 MG/20 ML VIAL As Ordered ONE (13:47)
[2021-11-04] MEDS ORDERED: dexameTHASONE 4 MG/ML 1ML VIAL (J1100 PER 1MG) As Ordered ONE ×2 (13:47→13:52)
[2021-11-04] MEDS ORDERED: LIDOCAINE 2% 100MG/5ML SDV (FOR ANES.) As Ordered ONE (13:47)
[2021-11-04] MEDS ORDERED: fentaNYL 100 MCG/2 ML INJECTION As Ordered ONE (13:48)
[2021-11-04] MEDS ORDERED: MIDAZOLAM INJ 2MG/2ML VIAL (J2250 PER 1MG) As Ordered ONE (13:48)
[2021-11-04] MEDS ORDERED: KETOROLAC 60MG 2ML VIAL As Ordered ONE (13:52)
[2021-11-04] MEDS ORDERED: SCOPOLAMINE 1MG TRANSDERMAL PATCH As Ordered ONE (14:24)
[2021-11-04] MEDS ORDERED: LR 1,000 ML IV SCH ×2 (14:55→15:05)
[2021-11-04] MEDS ORDERED: PERCOCET 5MG/325MG TAB PO PRN (15:00)
[2021-11-04] MEDS ORDERED: fentaNYL 100 MCG/2 ML INJECTION IV PRN (15:05)
[2021-11-04] MEDS ORDERED: ONDANSETRON 4MG/2ML VIAL IV PRN (15:05)
[2021-11-04] MEDS ORDERED: oxyCODONE 5MG TAB PO PRN (15:05)
[2021-11-04 16:15] VITALS: BP 160/83
[2021-11-04] MEDS ORDERED: IBUPROFEN 800 MG TAB PO SCH (21:00)
== END 2021-11-04 16:20 | disposition home or self-care (01) ==
LOC: M SDC 11:53
PROVIDERS: ATTEND Obstetrics & Gynecology
DX: N85.00 Endometrial hyperplasia, unspecified (principal); N95.0 Postmenopausal bleeding; I10 Essential (primary) hypertension; E78.5 Hyperlipidemia, unspecified; E11.9 Type 2 diabetes mellitus without complications; E03.9 Hypothyroidism, unspecified; Z85.850 Personal history of malignant neoplasm of thyroid; K21.9 Gastro-esophageal reflux disease without esophagitis; M54.2 Cervicalgia; Z88.2 Allergy status to sulfonamides; Z79.899 Other long term (current) drug therapy; Z79.84 Long term (current) use of oral hypoglycemic drugs
CPT/HCPCS: 58558; 88305; J0131; J1100; J1885; J2250; J2405; J3010

== ENCOUNTER → 2021-11-09 | Outpatient (CLI) | payer BC, OTHER | LOC: M RAD 12:00 | PROVIDERS: ATTEND Nurse Practitioner Family | DX: C73 Malignant neoplasm of thyroid gland (principal) ==

== ENCOUNTER → 2022-02-02 | Outpatient (CLI) | payer BC, OTHER ==
[~2022-02-02] MED LIST changes: -D31000TA2 PO; +VITA100093 PO
== END ==
LOC: M WHC 06:37
PROVIDERS: ATTEND Nurse Practitioner Family
DX: Z12.31 Encounter for screening mammogram for malignant neoplasm of breast (principal)

== ENCOUNTER → 2022-03-15 | Outpatient (CLI) | payer BC, OTHER | LOC: M RAD 14:58 | PROVIDERS: ATTEND Nurse Practitioner Family | DX: Z01.811 Encounter for preprocedural respiratory examination (principal) ==

== ENCOUNTER → 2022-03-21 | Outpatient (CLI) | payer BC, OTHER ==
[~2022-03-21] MED LIST changes: +OXYC1TAB23 PO
== END ==
LOC: M LABSMTC 10:21
PROVIDERS: ATTEND Anesthesiology
DX: Z01.812 Encounter for preprocedural laboratory examination (principal)

== ENCOUNTER 2022-03-24 08:39 | Day surgery (SDC) | payer BC, OTHER ==
[~2022-03-24] VITALS: Ht 162.6 cm; Wt 78.8 kg
[~2022-03-24 08:39] MED LIST changes: -OXYC1TAB23 PO; +ceFAZolin SOD 2 GM in IV 1 EA IV ONE
[2022-03-24] MEDS ORDERED: LR 1,000 ML IV SCH ×3 (09:20→13:55)
[2022-03-24 09:37] LABS: HEMATOCRIT 45.5 % (36.0-47.0); HEMOGLOBIN 15.4 g/dl (12.0-15.5); MEAN CORPUSCULAR HEMOGLOBIN 30.3 pg (27.0-33.0); MEAN CORPUSCULAR HGB CONC 33.8 g/dl (32.0-36.5); MEAN CORPUSCULAR VOLUME 89.6 fl (80.0-96.0); PLATELET COUNT, AUTOMATED 248 10^3/uL (150-450); RED BLOOD COUNT 5.08 10^6/uL (4.00-5.40); WHITE BLOOD COUNT 7.3 10^3/uL (4.0-10.0)
[2022-03-24] MEDS ORDERED: SCOPOLAMINE 1MG TRANSDERMAL PATCH TOP STA (09:53)
[2022-03-24 09:56] LABS: BLOOD UREA NITROGEN 13 MG/DL (7-18); CALCIUM LEVEL 10.1 MG/DL (8.5-10.1); CARBON DIOXIDE LEVEL 32 MEQ/L (21-32); CHLORIDE LEVEL 105 MEQ/L (98-107); CREATININE FOR GFR 0.58 MG/DL (0.55-1.30); GLOMERULAR FILTRATION RATE > 60.0 (>51); GLUCOSE, FASTING 173 MG/DL (70-100); POTASSIUM SERUM 4.3 MEQ/L (3.5-5.1); SODIUM LEVEL 141 MEQ/L (136-145)
[2022-03-24] MEDS ORDERED: BUPIVACAINE/EPIN 0.25% 30 ML VIAL As Ordered ONE (10:04)
[2022-03-24] MEDS ORDERED: FLUORESCEIN 10% (100MG/ML) 5ML VIAL As Ordered ONE (10:04)
[2022-03-24] MEDS ORDERED: dexameTHASONE 4 MG/ML 1ML VIAL (J1100 PER 1MG) As Ordered ONE (10:05)
[2022-03-24] MEDS ORDERED: propofoL 200 MG/20 ML VIAL As Ordered ONE (10:05)
[2022-03-24] MEDS ORDERED: ROCURONIUM BROMIDE 50 MG/5 ML VIAL As Ordered ONE ×2 (10:05→11:34)
[2022-03-24] MEDS ORDERED: ACETAMINOPHEN 1000MG 100ML IV BTL (OFIRMEV) (J0131 PER 10MG) As Ordered ONE (10:05)
[2022-03-24] MEDS ORDERED: ONDANSETRON 4MG 2ML VIAL As Ordered ONE (10:05)
[2022-03-24] MEDS ORDERED: SUGAMMADEX SODIUM 500 MG/5 ML VIAL (BRIDION) As Ordered ONE (10:05)
[2022-03-24] MEDS ORDERED: LIDOCAINE 2% INJ 100 MG/5 ML SYRINGE As Ordered ONE (10:05)
[2022-03-24] MEDS ORDERED: fentaNYL 100 MCG/2 ML INJECTION As Ordered ONE ×2 (10:06→11:23)
[2022-03-24] MEDS ORDERED: MIDAZOLAM INJ 2MG/2ML VIAL (J2250 PER 1MG) As Ordered ONE (10:08)
[2022-03-24] MEDS ORDERED: GLYCOPYRROLATE INJ 0.2 MG/ML 2 ML VIAL As Ordered ONE (11:09)
[2022-03-24] MEDS ORDERED: oxyCODONE 5MG TAB PO PRN (12:45)
[2022-03-24] MEDS ORDERED: ONDANSETRON 4MG 2ML VIAL IV PRN (12:45)
[2022-03-24] MEDS ORDERED: fentaNYL 100 MCG/2 ML INJECTION IV PRN (12:45)
[2022-03-24] MEDS ORDERED: OXYC1TAB23 PO (12:56)
[2022-03-24] MEDS: MEPERIDINE INJ 25 MG/ML VIAL (J2175) IV PRN ×2 (13:03→13:08)
[2022-03-24] MEDS: HYDROMORPHONE HCL 0.5 MG/ 0.5 ML SYRINGE (J1170 PER 1) IV PRN ×2 (13:20→13:30)
[2022-03-24] MEDS ORDERED: PERCOCET 5MG/325MG TAB PO PRN (13:55)
[2022-03-24] MEDS ORDERED: SIMETHICONE 80MG CHEW TAB PO SCH (14:00)
[2022-03-24] MEDS ORDERED: IBUPROFEN 800 MG TAB PO SCH (14:00)
[2022-03-24 15:00] VITALS: BP 126/64
== END 2022-03-24 15:12 | disposition home or self-care (01) ==
LOC: M SDC 08:39
PROVIDERS: ATTEND Obstetrics & Gynecology
DX: D25.0 Submucous leiomyoma of uterus (principal); D25.2 Subserosal leiomyoma of uterus; N83.291 Other ovarian cyst, right side; N83.292 Other ovarian cyst, left side; N73.6 Female pelvic peritoneal adhesions (postinfective); N85.00 Endometrial hyperplasia, unspecified; N93.9 Abnormal uterine and vaginal bleeding, unspecified; Z88.2 Allergy status to sulfonamides
CPT/HCPCS: 36415; 58571; 80048; 85027; 86850; 86900; 86901; 88307; J0131; J0690; J1100; J1170; J2175; J2250; J2405; J3010; S2900

== ENCOUNTER 2022-04-09 07:09 | Day surgery (SDC) | payer BC, OTHER ==
[2022-04-09] VITALS (7 sets, daily range): BP systolic 106–117; BP diastolic 56–60
[~2022-04-09] VITALS: Ht 162.6 cm; Wt 79.1 kg
[~2022-04-09 07:09] MED LIST changes: +FISH10005 PO; -FISH7.5C PO; +OXYC1TAB23 PO; -ceFAZolin SOD 2 GM in IV 1 EA IV ONE
[2022-04-09] MEDS ORDERED: NS 1,000 ML IV ONE (07:50)
[2022-04-09 08:18] LABS: BASO # 0.1 10^3/uL (0.0-0.2); BASO % 0.5 % (0.0-1.0); EOS # 0.2 10^3/uL (0.0-0.5); EOS % 1.4 % (0.0-3.0); HEMOGLOBIN 14.3 g/dl (12.0-15.5); LYMPH % 27.7 % (24.0-44.0); MEAN CORPUSCULAR HEMOGLOBIN 29.8 pg (27.0-33.0); MEAN CORPUSCULAR HGB CONC 33.3 g/dl (32.0-36.5); MEAN CORPUSCULAR VOLUME 89.6 fl (80.0-96.0); MONO # 0.7 10^3/uL (0.0-0.8); MONO % 6.4 % (2.0-8.0); NEUTROPHILS % 63.5 % (36.0-66.0); PLATELET COUNT, AUTOMATED 276 10^3/uL (150-450)
[2022-04-09] MEDS ORDERED: SILVER NITRATE APPLICATOR (1 = QTY 10) TOP ONE (08:25)
[2022-04-09 08:33] LABS: INR 0.95; PARTIAL THROMBOPLASTIN TIME 28.1 SECONDS (25.9-37.0); PROTHROMBIN TIME 13.1 SECONDS (12.7-14.5)
[2022-04-09 08:48] LABS: ALBUMIN 3.6 GM/DL (3.2-5.2); ALT/SGPT 24 U/L (12-78); BILIRUBIN,TOTAL 0.4 MG/DL (0.2-1.0); BLOOD UREA NITROGEN 16 MG/DL (7-18); CALCIUM LEVEL 9.5 MG/DL (8.5-10.1); CARBON DIOXIDE LEVEL 31 MEQ/L (21-32); CHLORIDE LEVEL 107 MEQ/L (98-107); CREATININE FOR GFR 0.49 MG/DL (0.55-1.30); GLOMERULAR FILTRATION RATE > 60.0 (>51); GLUCOSE, FASTING 172 MG/DL (70-100); POTASSIUM SERUM 3.7 MEQ/L (3.5-5.1); SODIUM LEVEL 142 MEQ/L (136-145)
[2022-04-09] MEDS ORDERED: ceFAZolin 1GM VIAL (J0690 PER 500MG) As Ordered ONE (08:57)
[2022-04-09] MEDS ORDERED: TRANEXAMIC ACID 100 MG/ML 10ML VIAL As Ordered ONE (08:59)
[2022-04-09 09:04] LABS: RSV AMPLIFICATION NEGATIVE (NEGATIVE)
[2022-04-09] MEDS ORDERED: fentaNYL 100 MCG/2 ML INJECTION As Ordered ONE (09:10)
[2022-04-09] MEDS ORDERED: LIDOCAINE 2% 100MG/5ML SDV (FOR ANES.) As Ordered ONE (09:10)
[2022-04-09] MEDS ORDERED: propofoL 200 MG/20 ML VIAL As Ordered ONE (09:10)
[2022-04-09] MEDS ORDERED: MIDAZOLAM INJ 2MG/2ML VIAL (J2250 PER 1MG) As Ordered ONE (09:10)
[2022-04-09] MEDS ORDERED: ROCURONIUM BROMIDE 50 MG/5 ML VIAL As Ordered ONE (09:10)
[2022-04-09] MEDS ORDERED: dexameTHASONE 4 MG/ML 1ML VIAL (J1100 PER 1MG) As Ordered ONE (09:11)
[2022-04-09] MEDS ORDERED: SUGAMMADEX SODIUM 500 MG/5 ML VIAL (BRIDION) As Ordered ONE (09:11)
[2022-04-09] MEDS ORDERED: METOCLOPRAMIDE INJ 10MG/2ML VIAL (J2765 PER 1) As Ordered ONE (09:11)
[2022-04-09] MEDS ORDERED: ONDANSETRON 4MG 2ML VIAL As Ordered ONE (09:11)
[2022-04-09] MEDS ORDERED: ACETAMINOPHEN 1000MG 100ML IV BTL (OFIRMEV) (J0131 PER 10MG) As Ordered ONE (09:11)
[2022-04-09] MEDS ORDERED: HYDROMORPHONE HCL 0.5 MG/ 0.5 ML SYRINGE (J1170 PER 1) IV PRN (09:25)
[2022-04-09] MEDS ORDERED: LR 1,000 ML IV SCH ×2 (09:25→09:40)
[2022-04-09] MEDS ORDERED: INSULIN LISPRO (NovoLOG) PER UNIT SC PRN (09:25)
[2022-04-09] MEDS ORDERED: oxyCODONE 5MG TAB PO PRN (09:25)
[2022-04-09] MEDS ORDERED: fentaNYL 100 MCG/2 ML INJECTION IV PRN (09:25)
[2022-04-09] MEDS ORDERED: ONDANSETRON 4MG 2ML VIAL IV PRN (09:25)
[2022-04-09] MEDS ORDERED: METOCLOPRAMIDE INJ 10MG/2ML VIAL (J2765 PER 1) IV PRN (09:25)
[2022-04-09] MEDS ORDERED: PERCOCET 5MG/325MG TAB PO PRN ×2 (09:40)
[2022-04-09 09:51] LABS: MEAN CORPUSCULAR HEMOGLOBIN 31.1 pg (27.0-33.0); MEAN CORPUSCULAR HGB CONC 34.7 g/dl (32.0-36.5); MEAN CORPUSCULAR VOLUME 89.8 fl (80.0-96.0); PLATELET COUNT, AUTOMATED 223 10^3/uL (150-450); RED BLOOD COUNT 3.34 10^6/uL (4.00-5.40); WHITE BLOOD COUNT 13.1 10^3/uL (4.0-10.0)
[2022-04-09 09:55] LABS: HEMOGLOBIN 10.4 g/dl (12.0-15.5)
[2022-04-09 11:41] LABS: HEMATOCRIT 30.5 % (36.0-47.0); HEMOGLOBIN 10.4 g/dl (12.0-15.5); MEAN CORPUSCULAR HEMOGLOBIN 30.6 pg (27.0-33.0); MEAN CORPUSCULAR HGB CONC 34.1 g/dl (32.0-36.5); MEAN CORPUSCULAR VOLUME 89.7 fl (80.0-96.0); PLATELET COUNT, AUTOMATED 222 10^3/uL (150-450); WHITE BLOOD COUNT 11.1 10^3/uL (4.0-10.0)
== END 2022-04-09 18:45 | disposition home or self-care (01) ==
LOC: M ED 07:09 → M SDC 07:11 → M PED 11:56 → M SDC 18:45
PROVIDERS: ATTEND Obstetrics & Gynecology
DX: T81.32XA Disruption of internal operation (surgical) wound, not elsewhere classified, initial encounter (principal); Y83.8 Other surgical procedures as the cause of abnormal reaction of the patient, or of later complication, without mention of misadventure at the time of the procedure; E11.9 Type 2 diabetes mellitus without complications; I10 Essential (primary) hypertension; Z85.850 Personal history of malignant neoplasm of thyroid; E89.0 Postprocedural hypothyroidism; Z88.2 Allergy status to sulfonamides; Z79.899 Other long term (current) drug therapy; Z79.84 Long term (current) use of oral hypoglycemic drugs; Z79.890 Hormone replacement therapy
CPT/HCPCS: 36415; 57200; 80053; 85025; 85027; 85610; 85730; 86850; 86900; 86901; 86920; 87631; 93041; 94760; 96361; 99285; J0131; J0690; J1100; J2250; J2405; J2765; J3010

== ENCOUNTER → 2022-06-19 | Outpatient (CLI) | payer BC, OTHER ==
[2022-06-22 11:11] LABS: THRYOGLOBULIN ANTIBODIES (ATA) < 1.0 IU/mL (0.0-0.9); THYROGLOBULIN QUANTITATIVE 3.7 ng/mL (1.5-38.5)
== END ==
LOC: M LAB 08:12
PROVIDERS: ATTEND Nurse Practitioner Family
DX: C73 Malignant neoplasm of thyroid gland (principal)

== ENCOUNTER → 2022-11-15 | Outpatient (CLI) | payer BC, OTHER | LOC: M RAD 13:30 | PROVIDERS: ATTEND Nurse Practitioner Family | DX: C73 Malignant neoplasm of thyroid gland (principal) ==

== ENCOUNTER → 2023-03-15 | Outpatient (CLI) | payer BC, OTHER ==
[~2023-03-15] MED LIST changes: -LOSA100T45 PO; +LOSA100T46 PO
== END ==
LOC: M WHC 10:48
PROVIDERS: ATTEND Registered Nurse Community Health
DX: Z12.31 Encounter for screening mammogram for malignant neoplasm of breast (principal)

== ENCOUNTER → 2023-07-19 | Outpatient (CLI) | payer BC, OTHER | LOC: M RAD 14:58 | PROVIDERS: ATTEND Physician Assistant | DX: M25.552 Pain in left hip (principal) ==

== ENCOUNTER → 2023-10-26 | Outpatient (CLI) | payer BC, OTHER | LOC: M RAD 12:58 | PROVIDERS: ATTEND Internal Medicine Endocrinology, Diabetes & Metabolism | DX: C73 Malignant neoplasm of thyroid gland (principal) ==

== ENCOUNTER → 2024-03-23 | Outpatient (CLI) | payer BC | LOC: M WHC 08:05 | PROVIDERS: ATTEND Physician Assistant | DX: Z12.31 Encounter for screening mammogram for malignant neoplasm of breast (principal) ==

== ENCOUNTER → 2024-07-12 | Outpatient (CLI) | payer BC | LOC: M WUC 12:18 | PROVIDERS: ATTEND Student in an Organized Health Care Education/Training Program | DX: M25.511 Pain in right shoulder (principal) ==

== ENCOUNTER → 2024-10-08 | Outpatient (REF) | payer OTHER | LOC: M LAB REF 20:46 | PROVIDERS: ATTEND Physician Assistant | DX: B34.9 Viral infection, unspecified (principal) ==

== ENCOUNTER → 2024-10-30 | Outpatient (CLI) | payer BC | LOC: M RAD 15:00 | PROVIDERS: ATTEND Internal Medicine Endocrinology, Diabetes & Metabolism | DX: C73 Malignant neoplasm of thyroid gland (principal) ==

== ENCOUNTER → 2025-04-18 | Outpatient (CLI) | payer BC | LOC: M WHC 07:05 | PROVIDERS: ATTEND Physician Assistant | DX: Z12.31 Encounter for screening mammogram for malignant neoplasm of breast (principal); R92.323 Mammographic fibroglandular density, bilateral breasts ==